=== PATIENT | female | born 1980 | race Caucasian/White ===

== ENCOUNTER 2017-03-29 01:46 | Inpatient (IN) | payer MEDICARE, MEDICAID ==
[~2017-03-29] VITALS: Ht 17.8 cm; Wt 79.9 kg
[2017-03-29] VITALS (9 sets, daily range): BP systolic 86–124; BP diastolic 50–86; PULSE 51–96; TEMP 98–99.5
[~2017-03-29 01:46] MED LIST: ABILIFY 10MG TA10 MG PO; ABILIFY2 MG PO; AMBIEN 5MG TABLE5 MG PO; CALCIUM/VITAMIN1 CAP PO; CALTRATE-600 W600 MG PO; CEFTIN500 MG PO; CELEBREX 200MG200 MG PO; CELEXA 20MG20 MG/TAB PO; CEPHALEXIN500 M1 PO; COLACE 100100 MG/CAP PO; CYMBALTA 30MG30 MG PO; DIFLUCAN200 MG PO; DILAUDID 2MG TAB2 MG PO; DILAUDID 4MG TAB4 MG PO; GENTLE LAXATIVE10 MG RC; K-TAB20; KEPPRA 500MG500 MG PO; KLONOPIN 1MG1 MG PO; KLOR-CON 1010 MEQ PO; LEVAQUIN 5500 MG/TA1 PO; LOPRESSOR 225 MG/TAB PO; METROGEL GEL45 GM; MILK OF MA400 MG/52 PO; MS CONTIN 660 MG/TAB PO; MULTIPLE VITAMI1 CAP PO; NEURONTIN100 MG/CAP PO; NEURONTIN300 MG/CAP PO; NICODERM C14 MG/PATC TOP; NYSTATIN POWDER15 GM TOP; NYSTATIN1 POW; PEPCID40 MG PO; PERCR 7.5 PO; PHENERGAN25 MG/ML IM; PLAVIX 75MG TAB75 MG PO; PREDNISONE10 MG PO; PREDNISONE20 MG PO; PRIL40 PO; PROSOURCE PROT946 ML PO; TOPROL XL 50MG50 MG PO; TYLENOL 325MG325 MG PO; TYLENOL 500MG500 MG PO; UNABLE; VITAMIN C500 MG PO; VITAMIN D 50,1.25 MG PO; ZOFRAN ODT4 MG PO; natural tears
[2017-03-29] MEDS ORDERED: ABILIFY5 MG PO (01:58)
[2017-03-29] MEDS ORDERED: NEURONTIN600 MG/TAB PO (01:59)
[2017-03-29] MEDS ORDERED: MIRALAX PA17 GM/Dose PO (02:00)
[2017-03-29] MEDS ORDERED: PHENERGAN25 MG/ML IM (02:01)
[2017-03-29] MEDS ORDERED: COLACE 100100 MG/CAP PO (02:01)
[2017-03-29] MEDS ORDERED: DILAUDID 4MG TAB4 MG PO (02:02)
[2017-03-29] MEDS ORDERED: TYLENOL 325MG325 MG PO (02:06)
[2017-03-29] MEDS ORDERED: PEPCID40 MG PO (02:06)
[2017-03-29 02:11] LABS: BASO # 0.1 (0.0-0.2); BASO % 0.3 % (0.0-2.0); GRAN # 12.6 (1.4-6.5); HEMATOCRIT 44.5 % (37.0-47.0); HEMOGLOBIN 14.5 g/dl (12.5-16.0); LYMPH # 1.2 (1.2-3.4); LYMPH % 8.2 % (20.0-51.0); MEAN CELL VOLUME 85 fl (80.0-100.0); MEAN CORPUSCULAR HEMOGLOBIN 28 pg (27.0-31.0); MEAN CORPUSCULAR HGB CONC 33 g/dl (33.0-37.0); MEAN PLATELET VOLUME 9.3 fl (7.4-10.4); MONO # 1.1 (0.1-0.6); MONO % 7.2 % (1.7-9.3); PLATELET COUNT 210 K/mm3 (130-400); RED BLOOD COUNT 5.22 M/mm3 (4.10-5.30); REDCELL DISTRIBUTION WIDTH-CV 13.4 % (11.5-14.5); WHITE BLOOD COUNT 15.1 K/mm3 (4.8-10.8)
[2017-03-29 02:22] LABS: ADJUSTED CALCIUM 9.3 mg/dL (8.4-10.2); ALBUMIN 3.9 gm/dL (3.5-5.0); BILIRUBIN,TOTAL 0.7 mg/dL (0.0-1.0); C-REACTIVE PROTEIN 1.1 mg/dL (0.0-0.9); CALCIUM 9.2 mg/dL (8.4-10.2); CREATININE, serum 0.53 mg/dL (0.52-1.25); POTASSIUM 4.6 mmol/L (3.4-5.0); TOTAL PROTEIN 7.6 gm/dL (6.4-8.2)
[2017-03-29 02:30] LABS: PH 5 (5-8); URINE APPEARANCE Hazy; URINE BACTERIA Rare /hpf; URINE BILIRUBIN Negative (NEGATIVE); URINE BLOOD 2+ (NEGATIVE); URINE COLOR Yellow; URINE GLUCOSE Negative (NEGATIVE); URINE KETONE Negative (NEGATIVE); URINE RBC >50 /hpf; URINE UROBILINOGEN Negative (NEGATIVE); URINE WBC 20-50 /hpf
[2017-03-30 02:26] VITALS: BP 97/61; PULSE 56; TEMP 98.1
[2017-03-30 04:21] VITALS: BP 107/58; PULSE 59; TEMP 98.2
[2017-03-30 07:07] LABS: BASO % 0.4 % (0.0-2.0); GRAN # 5.6 (1.4-6.5); LYMPH # 1.4 (1.2-3.4); LYMPH % 18.7 % (20.0-51.0); MEAN CELL VOLUME 88 fl (80.0-100.0); MEAN CORPUSCULAR HGB CONC 31 g/dl (33.0-37.0); MEAN PLATELET VOLUME 9.9 fl (7.4-10.4); MONO # 0.6 (0.1-0.6); MONO % 7.5 % (1.7-9.3); PLATELET COUNT 146 K/mm3 (130-400); RED BLOOD COUNT 3.54 M/mm3 (4.10-5.30); REDCELL DISTRIBUTION WIDTH-CV 13.5 % (11.5-14.5); WHITE BLOOD COUNT 7.7 K/mm3 (4.8-10.8)
[2017-03-30 07:21] LABS: CREATININE, serum 0.4 mg/dL (0.52-1.25); POTASSIUM 3.8 mmol/L (3.4-5.0)
[2017-03-30 07:33] LABS: HEMATOCRIT 31.2 % (37.0-47.0); HEMOGLOBIN 9.7 g/dl (12.5-16.0); MEAN CORPUSCULAR HEMOGLOBIN 27 pg (27.0-31.0)
[2017-03-30 09:21] VITALS: BP 88/46; PULSE 67; TEMP 98.3
[2017-03-30 13:29] VITALS: BP 95/50; PULSE 87; TEMP 98.1
[2017-03-30 17:01] VITALS: BP 114/72; PULSE 75; TEMP 98.4
[2017-03-30 22:26] VITALS: BP 111/70; PULSE 71; TEMP 96.8
[2017-03-31 01:34] VITALS: BP 113/72; PULSE 67; TEMP 97.7
[2017-03-31 04:00] VITALS: BP 114/70; PULSE 79; TEMP 97.9
[2017-03-31 07:51] LABS: BASO % 0.4 % (0.0-2.0); EOS % 0.4 % (0-4.0); GRAN # 3.2 (1.4-6.5); GRAN % 58.8 % (42.2-75.2); LYMPH # 1.8 (1.2-3.4); LYMPH % 32.5 % (20.0-51.0); MEAN CELL VOLUME 89 fl (80.0-100.0); MEAN CORPUSCULAR HGB CONC 31 g/dl (33.0-37.0); MEAN PLATELET VOLUME 10.2 fl (7.4-10.4); MONO # 0.4 (0.1-0.6); MONO % 7.5 % (1.7-9.3); PLATELET COUNT 144 K/mm3 (130-400); RED BLOOD COUNT 3.64 M/mm3 (4.10-5.30); REDCELL DISTRIBUTION WIDTH-CV 13.7 % (11.5-14.5); WHITE BLOOD COUNT 5.5 K/mm3 (4.8-10.8)
[2017-03-31 07:59] LABS: HEMATOCRIT 32.4 % (37.0-47.0); MEAN CORPUSCULAR HEMOGLOBIN 27 pg (27.0-31.0)
[2017-03-31 08:06] LABS: ADJUSTED CALCIUM 9.5 mg/dL (8.4-10.2); ALBUMIN 2.4 gm/dL (3.5-5.0); BILIRUBIN,TOTAL 0.4 mg/dL (0.0-1.0); CALCIUM 8.2 mg/dL (8.4-10.2); CREATININE, serum 0.45 mg/dL (0.52-1.25); POTASSIUM 3.5 mmol/L (3.4-5.0); TOTAL PROTEIN 5.2 gm/dL (6.4-8.2)
[2017-03-31 09:07] VITALS: BP 114/70; PULSE 79; TEMP 97.9
[2017-03-31 09:12] VITALS: BP 114/70; PULSE 79; TEMP 97.9
[2017-03-31 09:16] VITALS: BP 114/70; PULSE 79; TEMP 97.9
[2017-03-31 10:22] VITALS: BP 107/70; PULSE 76; TEMP 98
== END 2017-03-31 14:28 | DRG 872 ==
LOC: COL.ER 01:46 → SURG 03:18
PROVIDERS: Nurse Practitioner Family; Physician Assistant; Urology
PROC: 0T768DZ Dilation of Right Ureter with Intraluminal Device, Via Natural or Artificial Opening Endoscopic (ICD-10-PCS; principal; 2017-03-29 12:30)
DX: A41.9 Sepsis, unspecified organism (principal); N13.6 Pyonephrosis; G82.20 Paraplegia, unspecified; N39.0 Urinary tract infection, site not specified; E87.2 Acidosis; Z66 Do not resuscitate; I69.321 Dysphasia following cerebral infarction; I69.361 Other paralytic syndrome following cerebral infarction affecting right dominant side; I10 Essential (primary) hypertension; M79.7 Fibromyalgia; G89.29 Other chronic pain; K90.0 Celiac disease
CPT/HCPCS: 99231-AI; 99233-AI; C1769; C2617; J0690; J0696; J1100; J1170; J1580; J1885; J2405; J2704; J3010; J7030; Q9967

== ENCOUNTER 2017-04-13 11:42 | Day surgery (SDC) | payer MEDICARE, MEDICAID ==
[~2017-04-13] VITALS: Ht 172.7 cm; Wt 73.3 kg
[~2017-04-13 11:42] MED LIST changes: +ABILIFY5 MG PO; +MIRALAX PA17 GM/Dose PO; +NEURONTIN600 MG/TAB PO
[2017-04-13 13:29] VITALS: BP 93/59; PULSE 66; TEMP 97.1
[2017-04-13] MEDS ORDERED: EYE DROP ORIGIN15 ML OP (14:14)
[2017-04-13] MEDS ORDERED: NATURAL TEARS OP (14:16)
[2017-04-13] MEDS ORDERED: NYSTATIN POWDER30 GM TOP (14:19)
[2017-04-13 16:16] VITALS: TEMP 98.3
[2017-04-13 16:20] VITALS: BP 111/56; PULSE 72
[2017-04-13 16:35] VITALS: BP 101/59; PULSE 69
[2017-04-13 16:50] VITALS: BP 102/64; PULSE 79
[2017-04-13 17:05] VITALS: BP 103/69; PULSE 71
== END 2017-04-13 17:20 ==
LOC: SDCO 11:42
DX: N20.0 Calculus of kidney (principal); Z87.442 Personal history of urinary calculi; Z87.440 Personal history of urinary (tract) infections; I10 Essential (primary) hypertension; R56.9 Unspecified convulsions; I69.859 Hemiplegia and hemiparesis following other cerebrovascular disease affecting unspecified side; I69.828 Other speech and language deficits following other cerebrovascular disease; Z79.02 Long term (current) use of antithrombotics/antiplatelets; Z79.899 Other long term (current) drug therapy
CPT/HCPCS: C1769; C1894; C2617; J0690; J1100; J2370; J2405; J2704; J3010; J7120

== ENCOUNTER 2017-05-11 11:04 | Day surgery (SDC) | payer MEDICARE, MEDICAID ==
[~2017-05-11] VITALS: Ht 172.7 cm; Wt 79.6 kg
[~2017-05-11 11:04] MED LIST changes: +EYE DROP ORIGIN15 ML OP; +NATURAL TEARS OP; +NYSTATIN POWDER30 GM TOP
[2017-05-11 13:09] VITALS: BP 122/86; PULSE 99
[2017-05-11 16:45] VITALS: BP 114/64; PULSE 93
[2017-05-11 17:00] VITALS: BP 113/67; PULSE 90; TEMP 98.3
[2017-05-11 17:15] VITALS: BP 130/84; PULSE 88
== END 2017-05-11 17:25 ==
LOC: SDCO 11:04
DX: N20.0 Calculus of kidney (principal); Z87.442 Personal history of urinary calculi; I69.328 Other speech and language deficits following cerebral infarction; I69.369 Other paralytic syndrome following cerebral infarction affecting unspecified side; G82.20 Paraplegia, unspecified; I10 Essential (primary) hypertension; M62.81 Muscle weakness (generalized); Z87.440 Personal history of urinary (tract) infections; R56.9 Unspecified convulsions; Z79.01 Long term (current) use of anticoagulants; I73.9 Peripheral vascular disease, unspecified; K90.0 Celiac disease; F32.9 Major depressive disorder, single episode, unspecified; M79.7 Fibromyalgia; L89.90 Pressure ulcer of unspecified site, unspecified stage; Z86.14 Personal history of Methicillin resistant Staphylococcus aureus infection; Z87.891 Personal history of nicotine dependence
CPT/HCPCS: C1769; C1894; C2617; J0690; J1100; J2270; J2405; J2704; J3010; J7120

== ENCOUNTER 2017-05-12 13:20 | Inpatient (IN) | payer MEDICARE, MEDICAID ==
[2017-05-12] VITALS (391 sets, daily range): BP systolic 84–102; BP diastolic 60–68; PULSE 95–105; TEMP 97.2–99.4; O2SAT 78–100
[~2017-05-12] VITALS: Ht 172.7 cm; Wt 87.8 kg
[2017-05-12 13:59] LABS: BASO % 0.5 % (0.0-2.0); EOS % 0.2 % (0-4.0); GRAN # 4.8 (1.4-6.5); GRAN % 80.4 % (42.2-75.2); LYMPH # 0.8 (1.2-3.4); LYMPH % 13.7 % (20.0-51.0); MEAN CELL VOLUME 86 fl (80.0-100.0); MEAN CORPUSCULAR HGB CONC 32 g/dl (33.0-37.0); MEAN PLATELET VOLUME 9.8 fl (7.4-10.4); MONO # 0.3 (0.1-0.6); MONO % 4.9 % (1.7-9.3); PLATELET COUNT 148 K/mm3 (130-400); RED BLOOD COUNT 4.27 M/mm3 (4.10-5.30); REDCELL DISTRIBUTION WIDTH-CV 13.2 % (11.5-14.5); WHITE BLOOD COUNT 5.9 K/mm3 (4.8-10.8)
[2017-05-12 14:01] LABS: HEMATOCRIT 36.6 % (37.0-47.0); HEMOGLOBIN 11.6 g/dl (12.5-16.0); MEAN CORPUSCULAR HEMOGLOBIN 27 pg (27.0-31.0)
[2017-05-12 14:10] LABS: ADJUSTED CALCIUM 8.5 mg/dL (8.4-10.2); ALANINE AMINOTRANSFERASE 25 U/L (9-52); ALBUMIN 3.6 gm/dL (3.5-5.0); ALKALINE PHOSPHATASE 91 U/L (50-136); ANION GAP 12 mmol/L (7-16); BILIRUBIN,TOTAL 0.6 mg/dL (0.0-1.0); BLOOD UREA NITROGEN 11 mg/dL (7-17); CALCIUM 8.2 mg/dL (8.4-10.2); CARBON DIOXIDE 25 mmol/L (22-30); CHLORIDE 101 mmol/L (98-107); CREATININE, serum 0.59 mg/dL (0.52-1.25); GLUCOSE 85 mg/dL (74-106); POTASSIUM 3.9 mmol/L (3.4-5.0); SODIUM 138 mmol/L (137-145); TOTAL PROTEIN 6.8 gm/dL (6.4-8.2)
[2017-05-12 15:11] LABS: PH 7 (5-8); SQUAMOUS EPITHELIAL None Seen /hpf; URINE APPEARANCE Clear; URINE BACTERIA None Seen /hpf; URINE BILIRUBIN Negative (NEGATIVE); URINE BLOOD 3+ (NEGATIVE); URINE COLOR Red; URINE GLUCOSE 1+ (NEGATIVE); URINE KETONE Trace (NEGATIVE); URINE RBC >50 /hpf; URINE UROBILINOGEN Negative (NEGATIVE); URINE WBC None Seen /hpf
[2017-05-12 18:25] LABS: ARTERIAL BLD GAS TCO2 CT 21.5; ARTERIAL BLOOD GAS BASE EXCESS -4.2 (-2-2); ARTERIAL BLOOD GAS HCO3 20.4 meq/L (22-26); ARTERIAL BLOOD GAS PHT 7.38 C (7.35-7.45); ARTERIAL BLOOD GAS PO2 67.6 mmHg (80-100); ARTERIAL BLOOD GAS PO2T 67.6 (80-100); ARTERIAL BLOOD GAS pH 7.38 (7.35-7.45); OXYHEMOGLOBIN 91.4 %
[2017-05-12 18:26] LABS: ATS? YES
[2017-05-12 18:30] LABS: B-TYPE NATRIURETIC PEPTIDE 288 pg/mL (0-125)
[2017-05-12 19:10] LABS: INR 1.3 (0.8-3.0); PROTHROMBIN TIME 14.7 SECONDS (9.7-12.8)
[2017-05-12 19:34] LABS: TROPONIN-I < 0.012 ng/mL (0.000-0.034)
[2017-05-12 21:32] LABS: VENOUS BLOOD GAS BE -5.4 (-4-4); VENOUS BLOOD GAS SAO2 76.3 % (60-80)
[2017-05-12 21:33] LABS: VENOUS BLOOD GAS SITE CENTRAL LINE
[2017-05-13] VITALS (761 sets, daily range): BP systolic 89–136; BP diastolic 52–97; PULSE 66–100; TEMP 97.2–99.3; O2SAT 83–100
[2017-05-13 01:43] LABS: VENOUS BLOOD GAS BE -3.4 (-4-4); VENOUS BLOOD GAS SAO2 69.3 % (60-80)
[2017-05-13 01:45] LABS: VENOUS BLOOD GAS SITE CENTRAL LINE
[2017-05-13 04:54] LABS: INR 1.4 (0.8-3.0)
[2017-05-13 04:57] LABS: ADJUSTED CALCIUM 8.6 mg/dL (8.4-10.2); ALBUMIN 2.8 gm/dL (3.5-5.0); BILIRUBIN,TOTAL 0.5 mg/dL (0.0-1.0); CALCIUM 7.6 mg/dL (8.4-10.2); CREATININE, serum 0.47 mg/dL (0.52-1.25); PARTIAL THROMBOPLASTIN TIME 36.5 SECONDS (26.0-37.0); POTASSIUM 3.3 mmol/L (3.4-5.0); TOTAL PROTEIN 5.8 gm/dL (6.4-8.2)
[2017-05-13 05:38] LABS: VENOUS BLOOD GAS BE -3.1 (-4-4); VENOUS BLOOD GAS SAO2 75.1 % (60-80)
[2017-05-13 05:39] LABS: VENOUS BLOOD GAS SITE CENTRAL LINE
[2017-05-13 07:45] LABS: BASO % 0.2 % (0.0-2.0); GRAN # 3.5 (1.4-6.5); GRAN % 77.7 % (42.2-75.2); LYMPH # 0.7 (1.2-3.4); MEAN CELL VOLUME 86 fl (80.0-100.0); MEAN CORPUSCULAR HGB CONC 32 g/dl (33.0-37.0); MEAN PLATELET VOLUME 9.8 fl (7.4-10.4); MONO # 0.3 (0.1-0.6); MONO % 6.7 % (1.7-9.3); PLATELET COUNT 128 K/mm3 (130-400); REDCELL DISTRIBUTION WIDTH-CV 13.2 % (11.5-14.5); WHITE BLOOD COUNT 4.5 K/mm3 (4.8-10.8)
[2017-05-13 07:51] LABS: HEMATOCRIT 26.7 % (37.0-47.0); MEAN CORPUSCULAR HEMOGLOBIN 27 pg (27.0-31.0)
[2017-05-13 07:53] LABS: HEMOGLOBIN 8.5 g/dl (12.5-16.0)
[2017-05-13 10:00] LABS: MAGNESIUM 1.8 mg/dL (1.6-2.3); PHOSPHOROUS 2.5 mg/dL (2.5-4.5)
[2017-05-13 10:16] LABS: VENOUS BLOOD GAS BE -3.5 (-4-4); VENOUS BLOOD GAS SAO2 66.3 % (60-80)
[2017-05-13 10:17] LABS: VENOUS BLOOD GAS SITE CENTRAL LINE
[2017-05-13 14:39] LABS: VENOUS BLOOD GAS BE -1.9 (-4-4); VENOUS BLOOD GAS SAO2 71.6 % (60-80)
[2017-05-13 14:40] LABS: VENOUS BLOOD GAS SITE CENTRAL LINE
[2017-05-13 19:35] LABS: VENOUS BLOOD GAS BE -4.3 (-4-4); VENOUS BLOOD GAS SAO2 70.8 % (60-80)
[2017-05-13 19:36] LABS: VENOUS BLOOD GAS SITE CENTRAL LINE
[2017-05-14] VITALS (1222 sets, daily range): BP systolic 90–141; BP diastolic 55–96; PULSE 60–109; TEMP 97–98.9; O2SAT 62–100
[2017-05-14 06:10] LABS: BASO % 0.2 % (0.0-2.0); GRAN # 3.4 (1.4-6.5); GRAN % 76.8 % (42.2-75.2); LYMPH # 0.7 (1.2-3.4); LYMPH % 15.8 % (20.0-51.0); MEAN CELL VOLUME 85 fl (80.0-100.0); MEAN CORPUSCULAR HGB CONC 33 g/dl (33.0-37.0); MEAN PLATELET VOLUME 10.2 fl (7.4-10.4); MONO # 0.3 (0.1-0.6); MONO % 6.7 % (1.7-9.3); PLATELET COUNT 128 K/mm3 (130-400); RED BLOOD COUNT 3.26 M/mm3 (4.10-5.30); WHITE BLOOD COUNT 4.4 K/mm3 (4.8-10.8)
[2017-05-14 06:13] LABS: HEMATOCRIT 27.6 % (37.0-47.0); HEMOGLOBIN 9.1 g/dl (12.5-16.0); MEAN CORPUSCULAR HEMOGLOBIN 28 pg (27.0-31.0)
[2017-05-14 06:14] LABS: INR 1.3 (0.8-3.0); PROTHROMBIN TIME 14.3 SECONDS (9.7-12.8)
[2017-05-14 06:17] LABS: PARTIAL THROMBOPLASTIN TIME 31.3 SECONDS (26.0-37.0)
[2017-05-14 06:43] LABS: ADJUSTED CALCIUM 8.7 mg/dL (8.4-10.2); ALBUMIN 2.7 gm/dL (3.5-5.0); BILIRUBIN,TOTAL 0.4 mg/dL (0.0-1.0); CALCIUM 7.7 mg/dL (8.4-10.2); CREATININE, serum 0.36 mg/dL (0.52-1.25); TOTAL PROTEIN 5.4 gm/dL (6.4-8.2)
[2017-05-14 06:48] LABS: POTASSIUM 2.4 mmol/L (3.4-5.0)
[2017-05-14 12:00] LABS: MAGNESIUM 1.5 mg/dL (1.6-2.3); PHOSPHOROUS 1.6 mg/dL (2.5-4.5)
[2017-05-14 12:23] LABS: POTASSIUM 2.4 mmol/L (3.4-5.0)
[2017-05-14 20:06] LABS: MAGNESIUM 1.6 mg/dL (1.6-2.3); POTASSIUM 3.4 mmol/L (3.4-5.0)
[2017-05-15] VITALS (553 sets, daily range): BP systolic 89–121; BP diastolic 54–75; PULSE 46–82; TEMP 97.1–98.1; O2SAT 87–100
[2017-05-15 05:37] LABS: BASO % 0.4 % (0.0-2.0); EOS % 0.4 % (0-4.0); GRAN # 1.7 (1.4-6.5); GRAN % 60.5 % (42.2-75.2); LYMPH # 0.9 (1.2-3.4); LYMPH % 31.5 % (20.0-51.0); MEAN CELL VOLUME 85 fl (80.0-100.0); MEAN CORPUSCULAR HGB CONC 32 g/dl (33.0-37.0); MEAN PLATELET VOLUME 9.7 fl (7.4-10.4); MONO # 0.2 (0.1-0.6); MONO % 6.8 % (1.7-9.3); PLATELET COUNT 104 K/mm3 (130-400); RED BLOOD COUNT 3.02 M/mm3 (4.10-5.30); REDCELL DISTRIBUTION WIDTH-CV 13.2 % (11.5-14.5); WHITE BLOOD COUNT 2.8 K/mm3 (4.8-10.8)
[2017-05-15 05:42] LABS: HEMATOCRIT 25.6 % (37.0-47.0); HEMOGLOBIN 8.2 g/dl (12.5-16.0); MEAN CORPUSCULAR HEMOGLOBIN 27 pg (27.0-31.0)
[2017-05-15 05:47] LABS: ADJUSTED CALCIUM 8.8 mg/dL (8.4-10.2); ALBUMIN 2.5 gm/dL (3.5-5.0); BILIRUBIN,TOTAL 0.3 mg/dL (0.0-1.0); CALCIUM 7.6 mg/dL (8.4-10.2); CREATININE, serum 0.36 mg/dL (0.52-1.25); INR 1.2 (0.8-3.0); MAGNESIUM 2.2 mg/dL (1.6-2.3); PHOSPHOROUS 2.5 mg/dL (2.5-4.5); POTASSIUM 3.5 mmol/L (3.4-5.0); PROTHROMBIN TIME 12.8 SECONDS (9.7-12.8)
[2017-05-16 01:15] VITALS: BP 98/64; PULSE 57; TEMP 97.4
[2017-05-16 05:00] VITALS: BP 99/64; PULSE 72; TEMP 97.4
[2017-05-16 07:56] LABS: BASO % 0.3 % (0.0-2.0); EOS % 0.3 % (0-4.0); GRAN # 1.7 (1.4-6.5); GRAN % 56.7 % (42.2-75.2); LYMPH # 1.1 (1.2-3.4); LYMPH % 36.5 % (20.0-51.0); MEAN CELL VOLUME 88 fl (80.0-100.0); MEAN CORPUSCULAR HGB CONC 30 g/dl (33.0-37.0); MEAN PLATELET VOLUME 9.9 fl (7.4-10.4); MONO # 0.2 (0.1-0.6); MONO % 5.9 % (1.7-9.3); PLATELET COUNT 138 K/mm3 (130-400); RED BLOOD COUNT 3.14 M/mm3 (4.10-5.30); REDCELL DISTRIBUTION WIDTH-CV 13.6 % (11.5-14.5); WHITE BLOOD COUNT 3.1 K/mm3 (4.8-10.8)
[2017-05-16 07:59] LABS: HEMATOCRIT 27.5 % (37.0-47.0); HEMOGLOBIN 8.3 g/dl (12.5-16.0); MEAN CORPUSCULAR HEMOGLOBIN 26 pg (27.0-31.0)
[2017-05-16 08:15] LABS: CALCIUM 7.7 mg/dL (8.4-10.2); CREATININE, serum 0.37 mg/dL (0.52-1.25); MAGNESIUM 1.9 mg/dL (1.6-2.3); PHOSPHOROUS 2.3 mg/dL (2.5-4.5); POTASSIUM 3.6 mmol/L (3.4-5.0)
[2017-05-16 08:29] VITALS: BP 113/73; PULSE 51; TEMP 98.3
[2017-05-16 11:07] VITALS: BP 127/79; PULSE 75; TEMP 98
[2017-05-16 16:26] VITALS: BP 127/82; PULSE 67; TEMP 97.3
[2017-05-16 21:50] VITALS: BP 128/85; PULSE 78; TEMP 97.8
[2017-05-17] VITALS (7 sets, daily range): BP systolic 76–120; BP diastolic 44–96; PULSE 52–82; TEMP 96.7–98.2
[2017-05-17 07:54] LABS: BASO % 0.3 % (0.0-2.0); GRAN # 1.8 (1.4-6.5); GRAN % 58.9 % (42.2-75.2); LYMPH # 1.1 (1.2-3.4); LYMPH % 35.5 % (20.0-51.0); MEAN CELL VOLUME 88 fl (80.0-100.0); MEAN CORPUSCULAR HGB CONC 31 g/dl (33.0-37.0); MEAN PLATELET VOLUME 9.8 fl (7.4-10.4); MONO # 0.2 (0.1-0.6); PLATELET COUNT 152 K/mm3 (130-400); RED BLOOD COUNT 3.28 M/mm3 (4.10-5.30); REDCELL DISTRIBUTION WIDTH-CV 13.6 % (11.5-14.5)
[2017-05-17 07:59] LABS: HEMATOCRIT 28.7 % (37.0-47.0); HEMOGLOBIN 8.9 g/dl (12.5-16.0); MEAN CORPUSCULAR HEMOGLOBIN 27 pg (27.0-31.0)
[2017-05-17 08:16] LABS: CALCIUM 7.8 mg/dL (8.4-10.2); CREATININE, serum 0.36 mg/dL (0.52-1.25)
[2017-05-17 08:42] LABS: MAGNESIUM 1.8 mg/dL (1.6-2.3); PHOSPHOROUS 3.1 mg/dL (2.5-4.5)
[2017-05-18 00:35] VITALS: BP 105/64; PULSE 65; TEMP 98
[2017-05-18 06:21] LABS: BASO % 0.6 % (0.0-2.0); EOS % 0.2 % (0-4.0); GRAN # 3.5 (1.4-6.5); GRAN % 69.2 % (42.2-75.2); LYMPH # 1.2 (1.2-3.4); LYMPH % 23.2 % (20.0-51.0); MEAN CELL VOLUME 88 fl (80.0-100.0); MEAN CORPUSCULAR HGB CONC 31 g/dl (33.0-37.0); MEAN PLATELET VOLUME 9.7 fl (7.4-10.4); MONO # 0.3 (0.1-0.6); MONO % 6.2 % (1.7-9.3); PLATELET COUNT 166 K/mm3 (130-400); RED BLOOD COUNT 3.36 M/mm3 (4.10-5.30); REDCELL DISTRIBUTION WIDTH-CV 13.9 % (11.5-14.5)
[2017-05-18 06:24] LABS: HEMATOCRIT 29.5 % (37.0-47.0); HEMOGLOBIN 9.1 g/dl (12.5-16.0); MEAN CORPUSCULAR HEMOGLOBIN 27 pg (27.0-31.0)
[2017-05-18 06:35] LABS: CALCIUM 7.6 mg/dL (8.4-10.2); CREATININE, serum 0.38 mg/dL (0.52-1.25); POTASSIUM 3.8 mmol/L (3.4-5.0)
[2017-05-18 07:28] VITALS: BP 93/66; PULSE 53; TEMP 98
[2017-05-18] MEDS ORDERED: IMODIUM A-D2 MG PO (11:39)
[2017-05-18] MEDS ORDERED: FERROUS SU325 MG/TAB PO (11:39)
[2017-05-18 11:47] VITALS: BP 103/62; PULSE 63; TEMP 98.4
[2017-05-18] MEDS ORDERED: CIPRO 500MG TA500 MG PO (11:50)
[2017-05-18] MEDS ORDERED: KLONOPIN 1MG1 MG PO (12:00)
[2017-05-18] MEDS ORDERED: DILAUDID 4MG TAB4 MG PO (12:00)
[2017-05-18 12:34] VITALS: BP 103/62; PULSE 63; TEMP 98.4
== END 2017-05-18 16:21 | DRG 853 ==
LOC: COL.ER 13:20 → IMCU 15:36 → ICU 15:36 → MEDICAL 05-15 16:30
PROVIDERS: Emergency Medicine; Family Medicine; Internal Medicine Pulmonary Disease
PROC: 0TC68ZZ Extirpation of Matter from Right Ureter, Via Natural or Artificial Opening Endoscopic (ICD-10-PCS; principal; 2017-05-11)
PROC: 0TP98DZ Removal of Intraluminal Device from Ureter, Via Natural or Artificial Opening Endoscopic (ICD-10-PCS; 2017-05-11)
PROC: 0T768DZ Dilation of Right Ureter with Intraluminal Device, Via Natural or Artificial Opening Endoscopic (ICD-10-PCS; 2017-05-11)
PROC: 02H633Z Insertion of Infusion Device into Right Atrium, Percutaneous Approach (ICD-10-PCS; 2017-05-13)
DX: A41.9 Sepsis, unspecified organism (principal); R65.21 Severe sepsis with septic shock; N10 Acute pyelonephritis; G82.20 Paraplegia, unspecified; K52.1 Toxic gastroenteritis and colitis; D61.818 Other pancytopenia; N20.0 Calculus of kidney; M79.7 Fibromyalgia; Z66 Do not resuscitate; I10 Essential (primary) hypertension; I69.320 Aphasia following cerebral infarction; E87.6 Hypokalemia; D64.9 Anemia, unspecified; L27.0 Generalized skin eruption due to drugs and medicaments taken internally; T36.8X5A Adverse effect of other systemic antibiotics, initial encounter
CPT/HCPCS: 99223-AI; 99232-AI; 99233-AI; 99239; A4315; C1751; C1769; C1894; C2617; C9113; J0690; J0696; J1100; J1450; J1644; J1650; J1720; J1956; J2060; J2185; J2270; J2405; J2543; J2704; J3010; J3370; J3475; J3480; J7030; J7050; J7120; P9047; Q9967

== ENCOUNTER → 2017-05-21 | Outpatient (REF) ==
[~2017-05-21] MED LIST changes: +CIPRO 500MG TA500 MG PO; +FERROUS SU325 MG/TAB PO; +IMODIUM A-D2 MG PO
[2017-05-21 09:18] LABS: MEAN CELL VOLUME 86 fl (80.0-100.0); MEAN CORPUSCULAR HGB CONC 32 g/dl (33.0-37.0); MEAN PLATELET VOLUME 9.6 fl (7.4-10.4); PLATELET COUNT 193 K/mm3 (130-400)
[2017-05-21 09:54] LABS: HEMATOCRIT 32.5 % (37.0-47.0); HEMOGLOBIN 10.4 g/dl (12.5-16.0); MEAN CORPUSCULAR HEMOGLOBIN 27 pg (27.0-31.0)
== END ==
LOC: ZLAB.STJ 09:12
PROVIDERS: Internal Medicine
DX: Z01.89 Encounter for other specified special examinations (principal)

== ENCOUNTER → 2017-06-17 | Outpatient (CLI) | payer MEDICARE, MEDICAID | LOC: COL.RAD 09:00 | DX: N20.0 Calculus of kidney (principal); Z96.0 Presence of urogenital implants ==

== ENCOUNTER → 2017-08-11 | Outpatient (CLI) | payer MEDICARE, MEDICAID ==
[2017-08-11 11:00] LABS: BASO % 0.4 % (0.0-2.0); EOS % 0.5 % (0-4.0); GRAN # 4.5 (1.4-6.5); GRAN % 62.5 % (42.2-75.2); HEMATOCRIT 42.2 % (37.0-47.0); HEMOGLOBIN 13.5 g/dl (12.5-16.0); LYMPH # 2.2 (1.2-3.4); LYMPH % 30.6 % (20.0-51.0); MEAN CELL VOLUME 88 fl (80.0-100.0); MEAN CORPUSCULAR HEMOGLOBIN 28 pg (27.0-31.0); MEAN CORPUSCULAR HGB CONC 32 g/dl (33.0-37.0); MEAN PLATELET VOLUME 10.1 fl (7.4-10.4); MONO # 0.4 (0.1-0.6); MONO % 5.6 % (1.7-9.3); PLATELET COUNT 171 K/mm3 (130-400); RED BLOOD COUNT 4.78 M/mm3 (4.10-5.30); REDCELL DISTRIBUTION WIDTH-CV 14.6 % (11.5-14.5); WHITE BLOOD COUNT 7.3 K/mm3 (4.8-10.8)
[2017-08-11 11:24] LABS: ALBUMIN 3.7 gm/dL (3.5-5.0); BILIRUBIN,TOTAL 0.5 mg/dL (0.0-1.0); C-REACTIVE PROTEIN 1.1 mg/dL (0.0-0.9); CALCIUM 8.8 mg/dL (8.4-10.2); CREATININE, serum 0.4 mg/dL (0.52-1.25); POTASSIUM 3.9 mmol/L (3.4-5.0); TOTAL PROTEIN 6.8 gm/dL (6.4-8.2)
[2017-08-11 11:26] LABS: ERYTHROCYTE SEDIMENTATION RATE 10 mm/hr (0-20)
[2017-08-11 11:49] LABS: THYROID STIMULATING HORMONE 2.73 uIU/mL (0.465-4.680)
== END ==
LOC: ZLAB.STJ 10:49
PROVIDERS: Internal Medicine
DX: I77.6 Arteritis, unspecified (principal)

== ENCOUNTER → 2017-08-31 | Outpatient (CLI) | payer MEDICARE, MEDICAID | LOC: COL.RAD 08:56 | DX: R13.12 Dysphagia, oropharyngeal phase (principal) | CPT/HCPCS: G8996-GN; G8997-GN; G8998-GN ==

== ENCOUNTER → 2017-10-07 | Outpatient (CLI) | payer MEDICARE, MEDICAID | LOC: MC.RAD 11:00 | DX: N64.89 Other specified disorders of breast (principal); N64.4 Mastodynia ==

== ENCOUNTER → 2017-10-12 | Outpatient (CLI) | payer MEDICARE, MEDICAID ==
[2017-10-12 10:12] LABS: BASO % 0.7 % (0.0-2.0); EOS % 0.7 % (0-4.0); GRAN % 53.2 % (42.2-75.2); HEMATOCRIT 40.1 % (37.0-47.0); LYMPH # 2.2 (1.2-3.4); LYMPH % 39.1 % (20.0-51.0); MEAN CELL VOLUME 91 fl (80.0-100.0); MEAN CORPUSCULAR HEMOGLOBIN 29 pg (27.0-31.0); MEAN CORPUSCULAR HGB CONC 32 g/dl (33.0-37.0); MEAN PLATELET VOLUME 10.7 fl (7.4-10.4); MONO # 0.3 (0.1-0.6); MONO % 6.1 % (1.7-9.3); PLATELET COUNT 135 K/mm3 (130-400); RED BLOOD COUNT 4.43 M/mm3 (4.10-5.30); WHITE BLOOD COUNT 5.6 K/mm3 (4.8-10.8)
[2017-10-12 10:42] LABS: ADJUSTED CALCIUM 9.1 mg/dL (8.4-10.2); ALBUMIN 3.3 gm/dL (3.5-5.0); BILIRUBIN,TOTAL 0.4 mg/dL (0.0-1.0); C-REACTIVE PROTEIN 1.3 mg/dL (0.0-0.9); CALCIUM 8.5 mg/dL (8.4-10.2); CREATININE, serum 0.52 mg/dL (0.52-1.25); POTASSIUM 4.3 mmol/L (3.4-5.0)
[2017-10-12 10:50] LABS: ERYTHROCYTE SEDIMENTATION RATE 16 mm/hr (0-20)
== END ==
LOC: ZLAB.STJ 09:49
PROVIDERS: Internal Medicine
DX: M60.9 Myositis, unspecified (principal); I10 Essential (primary) hypertension; D64.9 Anemia, unspecified; M79.7 Fibromyalgia

== ENCOUNTER 2017-12-12 22:41 | Inpatient (IN) | payer MEDICARE, MEDICAID ==
[~2017-12-12] VITALS: Ht 172.7 cm; Wt 88.5 kg
[2017-12-12 23:16] LABS: BASO # 0.1 (0.0-0.2); BASO % 0.8 % (0.0-2.0); EOS % 0.2 % (0-4.0); GRAN # 4.6 (1.4-6.5); GRAN % 76.9 % (42.2-75.2); HEMOGLOBIN 12.3 g/dl (12.5-16.0); LYMPH # 0.8 (1.2-3.4); LYMPH % 12.7 % (20.0-51.0); MEAN CELL VOLUME 86 fl (80.0-100.0); MEAN CORPUSCULAR HEMOGLOBIN 29 pg (27.0-31.0); MEAN CORPUSCULAR HGB CONC 34 g/dl (33.0-37.0); MEAN PLATELET VOLUME 11.1 fl (7.4-10.4); MONO # 0.5 (0.1-0.6); MONO % 9.1 % (1.7-9.3); PLATELET COUNT 70 K/mm3 (130-400); RED BLOOD COUNT 4.23 M/mm3 (4.10-5.30); REDCELL DISTRIBUTION WIDTH-CV 13.1 % (11.5-14.5)
[2017-12-12 23:17] LABS: HEMATOCRIT 36.2 % (37.0-47.0)
[2017-12-12 23:24] LABS: BILIRUBIN,TOTAL 0.3 mg/dL (0.0-1.0); CALCIUM 8.4 mg/dL (8.4-10.2); CREATININE, serum 0.69 mg/dL (0.52-1.25); POTASSIUM 3.2 mmol/L (3.4-5.0); TOTAL PROTEIN 6.3 gm/dL (6.4-8.2)
[2017-12-12 23:39] LABS: COLLECTION METHOD CLEAN CATCH
[2017-12-12 23:47] LABS: MUCOUS Present /lpf; PH 6 (5-8); SQUAMOUS EPITHELIAL 0-2 /hpf; URINE APPEARANCE Hazy; URINE BACTERIA Many /hpf; URINE BILIRUBIN Negative (NEGATIVE); URINE BLOOD 2+ (NEGATIVE); URINE COLOR Yellow; URINE GLUCOSE Negative (NEGATIVE); URINE KETONE Negative (NEGATIVE); URINE LEUKOCYTE ESTERASE 3+ (NEGATIVE); URINE NITRATE Positive (NEGATIVE); URINE PROTEIN(semi-quant) 2+ (NEGATIVE); URINE RBC 20-50 /hpf; URINE UROBILINOGEN Negative (NEGATIVE)
[2017-12-12 23:47] LABS: INFLUENZA A NEGATIVE; INFLUENZA B NEGATIVE
[2017-12-13] VITALS (8 sets, daily range): BP systolic 98–137; BP diastolic 55–76; PULSE 65–115; TEMP 97.5–102.5
[2017-12-13] MEDS ORDERED: VITAMIN D 50,1.25 MG PO (01:08)
[2017-12-13] MEDS ORDERED: ALMACONE 360 M360 ML PO (01:10)
[2017-12-13] MEDS ORDERED: DILAUDID 4MG TAB4 MG PO (01:13)
[2017-12-13] MEDS ORDERED: NORCO 325 MG-51 TAB PO (01:15)
[2017-12-13] MEDS ORDERED: TAMIFLU 75MG75 MG PO (01:29)
[2017-12-13] MEDS ORDERED: LEXAPRO 10MG10 MG PO (01:30)
[2017-12-13 03:59] LABS: MEAN CELL VOLUME 88 fl (80.0-100.0); MEAN CORPUSCULAR HGB CONC 33 g/dl (33.0-37.0); MEAN PLATELET VOLUME 11.2 fl (7.4-10.4); PLATELET COUNT 60 K/mm3 (130-400); RED BLOOD COUNT 3.48 M/mm3 (4.10-5.30); REDCELL DISTRIBUTION WIDTH-CV 13.2 % (11.5-14.5)
[2017-12-13 04:06] LABS: HEMATOCRIT 30.7 % (37.0-47.0); MEAN CORPUSCULAR HEMOGLOBIN 29 pg (27.0-31.0)
[2017-12-13 04:11] LABS: CREATININE, serum 0.73 mg/dL (0.52-1.25); MAGNESIUM 1.8 mg/dL (1.6-2.3); PHOSPHOROUS 2.4 mg/dL (2.5-4.5)
[2017-12-13 04:16] LABS: POTASSIUM 2.9 mmol/L (3.4-5.0)
[2017-12-13 04:22] LABS: BASOPHIL 1 % (0-2); EOSINOPHIL 1 % (0-4); LYMPHOCYTE 21 % (20.0-51.0); NEUTROPHILS 70 % (42.0-75.2); ROULEAUX 1+
[2017-12-13 04:23] LABS: ANISOCYTOSIS 1+; MICROCYTOSIS 1+; POIKILOCYTOSIS 1+
[2017-12-14] VITALS (7 sets, daily range): BP systolic 84–106; BP diastolic 53–73; PULSE 54–93; TEMP 96.5–100.6
[2017-12-14 01:27] LABS: BASO % 0.4 % (0.0-2.0); GRAN % 70.1 % (42.2-75.2); LYMPH # 0.5 (1.2-3.4); LYMPH % 18.2 % (20.0-51.0); MEAN CELL VOLUME 89 fl (80.0-100.0); MEAN CORPUSCULAR HGB CONC 32 g/dl (33.0-37.0); MEAN PLATELET VOLUME 10.4 fl (7.4-10.4); MONO # 0.3 (0.1-0.6); MONO % 10.2 % (1.7-9.3); PLATELET COUNT 64 K/mm3 (130-400); RED BLOOD COUNT 3.49 M/mm3 (4.10-5.30); REDCELL DISTRIBUTION WIDTH-CV 13.6 % (11.5-14.5)
[2017-12-14 01:32] LABS: HEMATOCRIT 31.2 % (37.0-47.0); HEMOGLOBIN 10.1 g/dl (12.5-16.0); MEAN CORPUSCULAR HEMOGLOBIN 29 pg (27.0-31.0)
[2017-12-14 01:55] LABS: CREATININE, serum 0.6 mg/dL (0.52-1.25); POTASSIUM 3.9 mmol/L (3.4-5.0)
[2017-12-14 01:56] LABS: CALCIUM 7.7 mg/dL (8.4-10.2)
[2017-12-15 01:37] VITALS: BP 95/51; PULSE 92; TEMP 98.3
[2017-12-15 05:21] VITALS: BP 90/66; PULSE 90; TEMP 98.9
[2017-12-15 06:49] LABS: MEAN CELL VOLUME 88 fl (80.0-100.0); MEAN CORPUSCULAR HGB CONC 33 g/dl (33.0-37.0); PLATELET COUNT 115 K/mm3 (130-400); REDCELL DISTRIBUTION WIDTH-CV 13.7 % (11.5-14.5)
[2017-12-15 07:12] LABS: ALANINE AMINOTRANSFERASE 27 U/L (9-52); ALBUMIN 2.4 gm/dL (3.5-5.0); ALKALINE PHOSPHATASE 56 U/L (50-136); ANION GAP 6 mmol/L (7-16); AST,SGOT 13 U/L (15-37); BILIRUBIN,TOTAL < 0.1 mg/dL (0.0-1.0); BLOOD UREA NITROGEN 10 mg/dL (7-17); CALCIUM 8.3 mg/dL (8.4-10.2); CARBON DIOXIDE 23 mmol/L (22-30); CHLORIDE 115 mmol/L (98-107); GLUCOSE 76 mg/dL (74-106); POTASSIUM 3.1 mmol/L (3.4-5.0); SODIUM 144 mmol/L (137-145); TOTAL PROTEIN 5.4 gm/dL (6.4-8.2)
[2017-12-15 07:14] LABS: HEMATOCRIT 32.5 % (37.0-47.0); HEMOGLOBIN 10.7 g/dl (12.5-16.0); MEAN CORPUSCULAR HEMOGLOBIN 29 pg (27.0-31.0)
[2017-12-15 11:42] LABS: BAND 30 % (0-10); BASOPHIL 1 % (0-2); LYMPHOCYTE 41 % (20.0-51.0); NEUTROPHILS 26 % (42.0-75.2); PLATELET ESTIMATE NORMAL (NORMAL)
[2017-12-15 14:18] VITALS: BP 99/69; PULSE 88; TEMP 98.4
[2017-12-15 18:23] VITALS: BP 87/52; PULSE 95; TEMP 98.6
[2017-12-16] VITALS (7 sets, daily range): BP systolic 95–157; BP diastolic 50–81; PULSE 70–99; TEMP 97.6–99.6
[2017-12-16 06:53] LABS: MEAN CELL VOLUME 88 fl (80.0-100.0); MEAN CORPUSCULAR HGB CONC 33 g/dl (33.0-37.0); MEAN PLATELET VOLUME 10.3 fl (7.4-10.4); PLATELET COUNT 160 K/mm3 (130-400); RED BLOOD COUNT 3.54 M/mm3 (4.10-5.30); REDCELL DISTRIBUTION WIDTH-CV 13.7 % (11.5-14.5)
[2017-12-16 07:02] LABS: CALCIUM 8.5 mg/dL (8.4-10.2); CREATININE, serum 0.48 mg/dL (0.52-1.25); MAGNESIUM 1.3 mg/dL (1.6-2.3)
[2017-12-16 07:07] LABS: HEMATOCRIT 31.2 % (37.0-47.0); HEMOGLOBIN 10.3 g/dl (12.5-16.0); MEAN CORPUSCULAR HEMOGLOBIN 29 pg (27.0-31.0)
[2017-12-16 10:51] LABS: BAND 4 % (0-10); EOSINOPHIL 2 % (0-4); LYMPHOCYTE 35 % (20.0-51.0); NEUTROPHILS 49 % (42.0-75.2)
[2017-12-16 10:52] LABS: HYPOCHROMIA 1+; PLATELET ESTIMATE NORMAL (NORMAL)
[2017-12-17 02:11] VITALS: BP 109/50; PULSE 86; TEMP 98.3
[2017-12-17 04:57] VITALS: BP 105/67; PULSE 71; TEMP 98.3
[2017-12-17 07:13] LABS: BASO % 0.6 % (0.0-2.0); EOS # 0.1 (0.0-0.7); GRAN % 56.9 % (42.2-75.2); LYMPH # 1.8 (1.2-3.4); LYMPH % 33.9 % (20.0-51.0); MEAN CELL VOLUME 89 fl (80.0-100.0); MEAN CORPUSCULAR HGB CONC 33 g/dl (33.0-37.0); MEAN PLATELET VOLUME 10.1 fl (7.4-10.4); MONO # 0.3 (0.1-0.6); MONO % 6.3 % (1.7-9.3); PLATELET COUNT 219 K/mm3 (130-400); RED BLOOD COUNT 3.51 M/mm3 (4.10-5.30); REDCELL DISTRIBUTION WIDTH-CV 13.7 % (11.5-14.5)
[2017-12-17 07:21] LABS: HEMATOCRIT 31.1 % (37.0-47.0); HEMOGLOBIN 10.1 g/dl (12.5-16.0); MEAN CORPUSCULAR HEMOGLOBIN 29 pg (27.0-31.0)
[2017-12-17 07:38] LABS: CALCIUM 8.1 mg/dL (8.4-10.2); CREATININE, serum 0.49 mg/dL (0.52-1.25); MAGNESIUM 1.8 mg/dL (1.6-2.3); POTASSIUM 3.6 mmol/L (3.4-5.0)
[2017-12-17] MEDS ORDERED: KLONOPIN 1MG1 MG PO ×4 (08:44→09:13)
[2017-12-17] MEDS ORDERED: DEBROX OT (08:53)
[2017-12-17] MEDS ORDERED: MILK OF MA400 MG/52 PO (08:55)
[2017-12-17] MEDS ORDERED: IMODIUM A-D2 MG PO (09:01)
[2017-12-17] MEDS ORDERED: AMOXICILLIN 8751 TAB PO (09:07)
[2017-12-17] MEDS ORDERED: VITAMIN D 50,1.25 MG PO (09:12)
[2017-12-17] MEDS ORDERED: DILAUDID 4MG TAB4 MG PO (09:13)
[2017-12-17] MEDS ORDERED: NORCO 325 MG-51 TAB PO (09:13)
[2017-12-17 09:44] VITALS: BP 103/64; PULSE 81; TEMP 98.4
== END 2017-12-17 14:47 | DRG 854 ==
LOC: COL.ER 22:41 → MEDICAL 12-13 00:23 → ICU 12-13 00:23 → MEDICAL 12-13 09:39 → ICU 12-13 17:00 → SURG 12-14 20:14
PROVIDERS: Emergency Medicine; Family Medicine; Internal Medicine; Nurse Practitioner Family; Physician Assistant; Urology
PROC: 0T7B8DZ Dilation of Bladder with Intraluminal Device, Via Natural or Artificial Opening Endoscopic (ICD-10-PCS; principal; 2017-12-13 18:45)
PROC: BT1D1ZZ Fluoroscopy of Right Kidney, Ureter and Bladder using Low Osmolar Contrast (ICD-10-PCS; 2017-12-13 18:45)
PROC: 02HV33Z Insertion of Infusion Device into Superior Vena Cava, Percutaneous Approach (ICD-10-PCS; 2017-12-13 18:45)
DX: A41.51 Sepsis due to Escherichia coli [E. coli] (principal); N13.6 Pyonephrosis; E46 Unspecified protein-calorie malnutrition; B96.20 Unspecified Escherichia coli [E. coli] as the cause of diseases classified elsewhere; I10 Essential (primary) hypertension; I69.328 Other speech and language deficits following cerebral infarction; I69.398 Other sequelae of cerebral infarction; M79.7 Fibromyalgia; Z87.891 Personal history of nicotine dependence; E87.6 Hypokalemia; E83.42 Hypomagnesemia; R73.9 Hyperglycemia, unspecified
CPT/HCPCS: 99223-AI; 99231-AI; 99232-AI; 99233-AI; 99239; C1769; C2617; J0610; J1100; J1644; J1885; J2405; J2543; J2704; J3010; J3475; J3480; J7030; J7120; Q9967

== ENCOUNTER → 2017-12-20 | Outpatient (REF) ==
[~2017-12-20] MED LIST changes: +ALMACONE 360 M360 ML PO; +AMOXICILLIN 8751 TAB PO; +DEBROX OT; +LEXAPRO 10MG10 MG PO; +NORCO 325 MG-51 TAB PO; +TAMIFLU 75MG75 MG PO
[2017-12-20 10:22] LABS: CALCIUM 8.7 mg/dL (8.4-10.2); CREATININE, serum 0.42 mg/dL (0.52-1.25); POTASSIUM 4.3 mmol/L (3.4-5.0)
== END ==
LOC: ZLAB.STJ 09:40
PROVIDERS: Internal Medicine
DX: R79.89 Other specified abnormal findings of blood chemistry (principal); R68.89 Other general symptoms and signs

== ENCOUNTER → 2017-12-27 | Outpatient (CLI) | payer MEDICARE, MEDICAID ==
[~2017-12-27] MED LIST changes: +DEPO-PROVE150 MG/1 M IM; +DRISDOL50000 IU PO; +LIQUIFILM TEARS15 ML OU; +METROGEL GEL45 GM TP; +PEN-VEE K500 MG PO
[2017-12-27 10:24] LABS: ALBUMIN 3.3 gm/dL (3.5-5.0); BILIRUBIN,TOTAL 0.4 mg/dL (0.0-1.0); CALCIUM 8.8 mg/dL (8.4-10.2); CHOLESTEROL RISK RATIO 5.2; CREATININE, serum 0.46 mg/dL (0.52-1.25); PHOSPHOROUS 3.3 mg/dL (2.5-4.5); POTASSIUM 4.3 mmol/L (3.4-5.0); TOTAL PROTEIN 6.1 gm/dL (6.4-8.2)
== END ==
LOC: ZLAB.STJ 09:41
PROVIDERS: Internal Medicine
DX: G40.A09 Absence epileptic syndrome, not intractable, without status epilepticus (principal); R73.9 Hyperglycemia, unspecified

== ENCOUNTER 2017-12-28 08:35 | Day surgery (SDC) | payer MEDICARE, MEDICAID ==
[~2017-12-28] VITALS: Ht 165.1 cm; Wt 84.6 kg
[2017-12-28] VITALS (7 sets, daily range): BP systolic 101–115; BP diastolic 42–72; PULSE 66–94; TEMP 98–98.3
[~2017-12-28 08:35] MED LIST changes: -DEPO-PROVE150 MG/1 M IM; -DRISDOL50000 IU PO; -LIQUIFILM TEARS15 ML OU; -METROGEL GEL45 GM TP; -PEN-VEE K500 MG PO
[2017-12-28] MEDS ORDERED: DRISDOL50000 IU PO (10:06)
[2017-12-28] MEDS ORDERED: DEPO-PROVE150 MG/1 M IM (10:15)
[2017-12-28] MEDS ORDERED: KLONOPIN 1MG1 MG PO ×2 (10:16→10:19)
[2017-12-28] MEDS ORDERED: NORCO 325 MG-51 TAB PO (10:17)
[2017-12-28] MEDS ORDERED: FERROUS SU325 MG/TAB PO (10:20)
[2017-12-28] MEDS ORDERED: DILAUDID 4MG TAB4 MG PO (10:31)
[2017-12-28] MEDS ORDERED: PEN-VEE K500 MG PO (10:32)
[2017-12-28] MEDS ORDERED: METROGEL GEL45 GM TP (10:33)
[2017-12-28] MEDS ORDERED: LIQUIFILM TEARS15 ML OU ×2 (10:34→10:35)
== END 2017-12-28 13:25 ==
LOC: SDCO 08:35
DX: N20.1 Calculus of ureter (principal); I10 Essential (primary) hypertension; F32.9 Major depressive disorder, single episode, unspecified; I73.9 Peripheral vascular disease, unspecified; N39.0 Urinary tract infection, site not specified; B96.20 Unspecified Escherichia coli [E. coli] as the cause of diseases classified elsewhere; M79.7 Fibromyalgia; Z79.01 Long term (current) use of anticoagulants; Z87.891 Personal history of nicotine dependence; Z86.73 Personal history of transient ischemic attack (TIA), and cerebral infarction without residual deficits
CPT/HCPCS: C1769; C2617; J0690; J1100; J2405; J2704; J3010; J7120

== ENCOUNTER → 2018-01-04 | Outpatient (CLI) | payer MEDICARE, MEDICAID ==
[~2018-01-04] MED LIST changes: +DEPO-PROVE150 MG/1 M IM; +DRISDOL50000 IU PO; +LIQUIFILM TEARS15 ML OU; +METROGEL GEL45 GM TP; +PEN-VEE K500 MG PO
== END ==
LOC: SDCO 08:30 → COL.RAD 09:42 → EDSTATUS 11:00 → SDCO 11:00
DX: N20.0 Calculus of kidney (principal)

== ENCOUNTER → 2018-04-11 | Outpatient (CLI) | payer MEDICARE, MEDICAID | LOC: MC.RAD 08:00 | DX: N63.20 Unspecified lump in the left breast, unspecified quadrant (principal); N64.4 Mastodynia ==

== ENCOUNTER → 2018-04-22 | Outpatient (REF) | LOC: ZLAB.STJ 22:26 | DX: Z01.89 Encounter for other specified special examinations (principal) ==

== ENCOUNTER → 2018-05-30 | Outpatient (REF) | LOC: ZLAB.STJ 09:17 | DX: E63.9 Nutritional deficiency, unspecified (principal) ==

== ENCOUNTER → 2018-12-27 | Outpatient (CLI) | payer MEDICARE, MEDICAID ==
[2018-12-27 12:50] LABS: ALBUMIN 3.1 gm/dL (3.5-5.0); BILIRUBIN,TOTAL 0.4 mg/dL (0.0-1.0); CALCIUM 8.5 mg/dL (8.4-10.2); CHOLESTEROL RISK RATIO 5.6; CREATININE, serum 0.45 mg/dL (0.52-1.25); POTASSIUM 4.3 mmol/L (3.4-5.0); TOTAL PROTEIN 5.9 gm/dL (6.4-8.2)
== END ==
LOC: ZLAB.STJ 10:05
PROVIDERS: Internal Medicine
DX: I63.50 Cerebral infarction due to unspecified occlusion or stenosis of unspecified cerebral artery (principal); E87.6 Hypokalemia; R73.9 Hyperglycemia, unspecified

== ENCOUNTER → 2019-02-23 | Outpatient (CLI) | payer MEDICARE, MEDICAID | LOC: ZCOL.LAB 15:23 | DX: Z01.812 Encounter for preprocedural laboratory examination (principal); Z86.14 Personal history of Methicillin resistant Staphylococcus aureus infection ==

== ENCOUNTER → 2019-03-09 | Outpatient (CLI) | payer MEDICARE, MEDICAID | LOC: ZCOL.LAB 15:13 | DX: Z01.812 Encounter for preprocedural laboratory examination (principal); Z86.14 Personal history of Methicillin resistant Staphylococcus aureus infection ==

== ENCOUNTER → 2019-03-10 | Outpatient (CLI) | payer MEDICARE, MEDICAID ==
[2019-03-10 17:17] LABS: COLLECTION METHOD CATHETER
[2019-03-10 17:33] LABS: AMORPHOUS CRYSTAL Present /uL; MUCOUS Present /lpf; PH 5 (5-8); URINE APPEARANCE Hazy; URINE BACTERIA Rare /hpf; URINE BILIRUBIN Negative (NEGATIVE); URINE BLOOD 1+ (NEGATIVE); URINE COLOR Yellow; URINE GLUCOSE Negative (NEGATIVE); URINE KETONE Negative (NEGATIVE); URINE LEUKOCYTE ESTERASE Negative (NEGATIVE); URINE NITRATE Positive (NEGATIVE); URINE PROTEIN(semi-quant) Negative (NEGATIVE); URINE UROBILINOGEN Negative (NEGATIVE)
== END ==
LOC: ZLAB.STJ 16:43
PROVIDERS: Internal Medicine
DX: R82.90 Unspecified abnormal findings in urine (principal)

== ENCOUNTER 2019-03-22 05:13 | Day surgery (SDC) | payer MEDICARE, MEDICAID ==
[~2019-03-22] VITALS: Ht 172.7 cm; Wt 91.4 kg
[2019-03-22] VITALS (8 sets, daily range): BP systolic 85–114; BP diastolic 49–89; PULSE 78–99; TEMP 97.9–98.1
--- NOTE | 2019-03-22 06:36 | NUR ---
MEDICATION RECONCILIATION ATTEMPTED, PHYSICIAN IN RECORD AT THIS TIME.
--- NOTE | 2019-03-22 10:05 | NUR ---
The patient arrived back to [place] [facility] from the recovery room at this time. The patient appears alert and oriented at this time. The patient reports pain in her right ankle at this time. The nurse educated the patient that she received a second block before she was transferred back to her room. The patient's post operative vital signs were started at this time. The patient's sister was brought back to be at her bedside. The patient is eating a protein bar provided by her sister and reqeusted some chocolate pudding at this time. Call light is within reach. The patient's plaster/matthew wrap dressing to her right lower extremity appears clean, dry and intact. The patient has oxygen in place at 3L per nasal cannula. Will continue to monitor the patient.
--- NOTE | 2019-03-22 10:20 | NUR ---
The patient requests more chocolate pudding at this time. The patient's sister is assisting her to eat the food provided. The patient's vital signs appears stable. The patient's oxygen was weaned down to 2L per nasal cannula. Khoi light is within reach. Will continue to monitor the patient.
--- NOTE | 2019-03-22 10:35 | NUR ---
The patient was given some fresh ice water at this time. The patient was given a PRN dose of [place] two tabs at this time for her continued report of increased pain in her right ankle. The patient's sister remains at her bedside. Will continue to monitor the patient.
--- NOTE | 2019-03-22 10:50 | NUR ---
The patient's oxygen was weaned down to 1L per nasal cannula. The patient continues to report moderate pain in her right ankle at this time. The nurse educated the patient and her sister that some of her pain could be due to the positioning of her ankle in the plaster splint. The sister verbalized understanding at this time. Will continue to monitor the patient.
[2019-03-22] MEDS ORDERED: NORCO 325 MG-7.1 TAB PO (11:09)
[2019-03-22] MEDS ORDERED: CEPHALEXIN500 M1 PO (11:10)
[2019-03-22] MEDS ORDERED: PHENERGAN 25 TA25 MG PO (11:10)
--- NOTE | 2019-03-22 11:20 | NUR ---
The patient is lying down in bed and appears to be resting comfortably on the cart. The patient states her ankle still hurts but it "better". The patient's sister remains at her bedside.
--- NOTE | 2019-03-22 11:45 | NUR ---
The patient states her pain is "much better" and she is "ready to go eat lunch". The patient's sister confirms that the patient is ready to be transferred back to [facility]. Will continue to monitor the patient.
--- NOTE | 2019-03-22 11:49 | NUR ---
Report was called to Cassandra, nurse at [facility], who will be assuming the care of the patient back at their facility. She verbalized understanding of the report given and has no questions for the nurse at this time. She is going to call transportation to let them know to come pick the patient up.
--- NOTE | 2019-03-22 12:00 | NUR ---
The patient's brief was changed and she assisted to get dressed with the help of two nurses and appeared to tolerate the activity well. The patient was transferred from the cart to her personal wheelchair with the total lift at this time. The patient's IV to her right hand was removed and a pressure dressing was applied to the site prior to her transfer to the wheelchair.
--- NOTE | 2019-03-22 12:15 | NUR ---
The patient was escorted out via her personal wheelchair by her sister Gretchen at this time. The patient's belongings and discharge paperwork were sent with her. Transportation from [facility] is present to transport her back to their facility.
== END 2019-03-22 12:15 | disposition home or self-care (01) ==
LOC: SDCO 05:13
DX: M24.574 Contracture, right foot (principal); M19.071 Primary osteoarthritis, right ankle and foot; Z79.899 Other long term (current) drug therapy; I73.9 Peripheral vascular disease, unspecified; G89.29 Other chronic pain; I69.328 Other speech and language deficits following cerebral infarction; I69.398 Other sequelae of cerebral infarction; Z87.891 Personal history of nicotine dependence; K90.0 Celiac disease; F32.9 Major depressive disorder, single episode, unspecified; R53.1 Weakness; I69.859 Hemiplegia and hemiparesis following other cerebrovascular disease affecting unspecified side; Z87.442 Personal history of urinary calculi; M79.7 Fibromyalgia
CPT/HCPCS: C1713; J1100; J2250; J2405; J2704; J3010; J7120

== ENCOUNTER → 2019-07-28 | Outpatient (CLI) | payer MEDICARE, MEDICAID ==
[~2019-07-28] MED LIST changes: +NORCO 325 MG-7.1 TAB PO; +PHENERGAN 25 TA25 MG PO
== END ==
LOC: COL.RAD 10:21
DX: G31.9 Degenerative disease of nervous system, unspecified (principal)

== ENCOUNTER → 2019-08-10 | Outpatient (CLI) | payer MEDICARE, MEDICAID ==
[2019-08-10 14:36] LABS: COLLECTION METHOD CLEAN CATCH
[2019-08-10 14:38] LABS: BASO % 0.7 % (0.0-2.0); EOS % 0.5 % (0-4.0); GRAN # 3.5 (1.4-6.5); GRAN % 57.5 % (42.2-75.2); HEMATOCRIT 41.9 % (37.0-47.0); HEMOGLOBIN 13.3 g/dl (12.5-16.0); LYMPH # 2.1 (1.2-3.4); LYMPH % 34.3 % (20.0-51.0); MEAN CELL VOLUME 86 fl (80.0-100.0); MEAN CORPUSCULAR HEMOGLOBIN 27 pg (27.0-31.0); MEAN CORPUSCULAR HGB CONC 32 g/dl (33.0-37.0); MONO # 0.4 (0.1-0.6); MONO % 6.7 % (1.7-9.3); PLATELET COUNT 152 K/mm3 (130-400); RED BLOOD COUNT 4.88 M/mm3 (4.10-5.30); REDCELL DISTRIBUTION WIDTH-CV 14.9 % (11.5-14.5)
[2019-08-10 14:40] LABS: ALBUMIN 3.1 gm/dL (3.5-5.0); BILIRUBIN,TOTAL 0.3 mg/dL (0.0-1.0); CALCIUM 8.6 mg/dL (8.4-10.2); CREATININE, serum 0.44 (0.52-1.25); POTASSIUM 4.5 mmol/L (3.4-5.0); TOTAL PROTEIN 5.8 gm/dL (6.4-8.2)
[2019-08-10 14:56] LABS: PH 7 (5-8); SQUAMOUS EPITHELIAL 0-2 /hpf; URINE APPEARANCE Cloudy; URINE BACTERIA Many /hpf; URINE BILIRUBIN Negative (NEGATIVE); URINE BLOOD 2+ (NEGATIVE); URINE COLOR Yellow; URINE GLUCOSE Negative (NEGATIVE); URINE KETONE Negative (NEGATIVE); URINE LEUKOCYTE ESTERASE 3+ (NEGATIVE); URINE NITRATE Negative (NEGATIVE); URINE PROTEIN(semi-quant) Negative (NEGATIVE); URINE UROBILINOGEN Negative (NEGATIVE)
== END ==
LOC: ZCOL.LAB 14:22
PROVIDERS: Nurse Practitioner
DX: R79.89 Other specified abnormal findings of blood chemistry (principal); R82.90 Unspecified abnormal findings in urine

== ENCOUNTER → 2020-02-05 | Outpatient (CLI) | payer MEDICARE, MEDICAID | LOC: ZLAB.STJ 15:30 | DX: R50.9 Fever, unspecified (principal) ==

== ENCOUNTER → 2020-04-25 | Outpatient (CLI) | payer MEDICARE, MEDICAID ==
[2020-04-25 17:28] LABS: ALBUMIN 3.6 gm/dL (3.5-5.0); BILIRUBIN,TOTAL 0.6 mg/dL (0.0-1.0); CALCIUM 8.7 mg/dL (8.4-10.2); CREATININE, serum 0.47 (0.52-1.25); MAGNESIUM 2.3 mg/dL (1.6-2.3); POTASSIUM 4.2 mmol/L (3.4-5.0); TOTAL PROTEIN 7.1 gm/dL (6.4-8.2)
== END ==
LOC: ZLAB.STJ 16:03
PROVIDERS: Internal Medicine
DX: E61.2 Magnesium deficiency (principal); R74.8 Abnormal levels of other serum enzymes; N39.0 Urinary tract infection, site not specified; R68.89 Other general symptoms and signs

== ENCOUNTER → 2020-05-09 | Outpatient (CLI) | payer MEDICARE, MEDICAID | LOC: ZCOL.LAB 19:02 | DX: Z11.59 Encounter for screening for other viral diseases (principal); Z01.84 Encounter for antibody response examination ==

== ENCOUNTER → 2020-05-15 | Outpatient (CLI) | payer MEDICARE, MEDICAID | LOC: COL.RAD 09:45 | DX: R74.8 Abnormal levels of other serum enzymes (principal); R10.11 Right upper quadrant pain ==

== ENCOUNTER → 2020-06-04 | Outpatient (CLI) | payer MEDICARE, MEDICAID ==
[2020-06-05 11:22] LABS: ANA SCREEN with REFLEX Negative (Negative)
[2020-06-06 01:04] LABS: BETA-2 GPI IGG AABS <20.0 CU (<=20.0); BETA-2 GPI IGM AABS <20.0 CU (<=20.0)
[2020-06-06 01:05] LABS: CARDIOLIPIN IGG ANTIBODY <20.0 CU (<=20.0)
[2020-06-06 10:19] LABS: BETA 2 IGG-REFLEX SEE PCI
[2020-06-06 10:20] LABS: BETA 2 IGM-REFLEX SEE PCI
== END ==
LOC: ZCOL.LAB 09:59
PROVIDERS: Student in an Organized Health Care Education/Training Program
DX: D68.61 Antiphospholipid syndrome (principal); R51 Headache

== ENCOUNTER → 2020-06-08 | Outpatient (CLI) | payer MEDICARE, MEDICAID ==
[2020-06-11 13:24] LABS: LUPUS ANTICOAGULANT INR 1.1 (0.7-1.3); LUPUS ANTICOAGULANT PT 13.9 Seconds (())
== END ==
LOC: ZLAB.STJ 16:01
PROVIDERS: Student in an Organized Health Care Education/Training Program
DX: D68.61 Antiphospholipid syndrome (principal)

== ENCOUNTER → 2020-08-01 | Outpatient (CLI) | payer MEDICARE, MEDICAID ==
[2020-08-01 17:55] LABS: CALCIUM 8.6 mg/dL (8.4-10.2); CREATININE, serum 0.47 (0.52-1.25); POTASSIUM 4.2 mmol/L (3.4-5.0)
== END ==
LOC: ZLAB.STJ 16:24
PROVIDERS: Internal Medicine
DX: E87.5 Hyperkalemia (principal); R19.7 Diarrhea, unspecified

== ENCOUNTER → 2020-10-02 | Outpatient (CLI) | payer MEDICARE, MEDICAID | LOC: COL.CARD 09:58 | DX: R94.01 Abnormal electroencephalogram [EEG] (principal) ==

== ENCOUNTER → 2020-11-14 | Outpatient (CLI) | payer MEDICARE, MEDICAID | LOC: ZLAB.STJ 11:41 | DX: I63.50 Cerebral infarction due to unspecified occlusion or stenosis of unspecified cerebral artery (principal) ==

== ENCOUNTER → 2020-12-04 | Outpatient (CLI) | payer MEDICARE, MEDICAID ==
[2020-12-04 16:13] LABS: COLLECTION METHOD CLEAN CATCH
[2020-12-04 16:21] LABS: MUCOUS Present /lpf; PH 7 (5-8); SQUAMOUS EPITHELIAL 0-2 /hpf; URINE APPEARANCE Cloudy; URINE BACTERIA Rare /hpf; URINE BILIRUBIN Negative (NEGATIVE); URINE BLOOD Negative (NEGATIVE); URINE COLOR Yellow; URINE GLUCOSE Negative (NEGATIVE); URINE KETONE Negative (NEGATIVE); URINE LEUKOCYTE ESTERASE 1+ (NEGATIVE); URINE NITRATE Negative (NEGATIVE); URINE PROTEIN(semi-quant) 1+ (NEGATIVE); URINE RBC 20-50 /hpf; URINE UROBILINOGEN Negative (NEGATIVE); URINE WBC >50 /hpf
== END ==
LOC: ZLAB.STJ 16:07
PROVIDERS: Internal Medicine
DX: N39.0 Urinary tract infection, site not specified (principal)

== ENCOUNTER → 2021-01-17 | Outpatient (CLI) | payer MEDICARE, MEDICAID ==
[2021-01-17 11:53] LABS: COLLECTION METHOD CATHETER
[2021-01-17 12:12] LABS: MUCOUS Present /lpf; PH 6 (5-8); SQUAMOUS EPITHELIAL None Seen /hpf; URINE APPEARANCE Clear; URINE BACTERIA None Seen /hpf; URINE BILIRUBIN Negative (NEGATIVE); URINE BLOOD Negative (NEGATIVE); URINE COLOR Yellow; URINE GLUCOSE Negative (NEGATIVE); URINE KETONE Negative (NEGATIVE); URINE LEUKOCYTE ESTERASE Negative (NEGATIVE); URINE NITRATE Negative (NEGATIVE); URINE PROTEIN(semi-quant) Negative (NEGATIVE); URINE RBC None Seen /hpf; URINE UROBILINOGEN Negative (NEGATIVE); URINE WBC 0-2 /hpf
== END ==
LOC: ZLAB.STJ 11:44
PROVIDERS: Internal Medicine
DX: R32 Unspecified urinary incontinence (principal)

== ENCOUNTER 2021-03-18 01:11 | Emergency (ER) | payer MEDICARE, MEDICAID ==
[~2021-03-18] VITALS: Ht 172.7 cm; Wt 95.5 kg
[2021-03-18 01:12] VITALS: TEMP 98.1
[2021-03-18 02:50] VITALS: BP 115/65; PULSE 80
== END 2021-03-18 03:00 | disposition home or self-care (01) ==
LOC: COL.ER 01:11
DX: S00.83XA Contusion of other part of head, initial encounter (principal); Z88.1 Allergy status to other antibiotic agents; W06.XXXA Fall from bed, initial encounter

== ENCOUNTER → 2021-04-17 | Outpatient (REF) ==
[~2021-04-17] MED LIST changes: +AJOVY AUTO225 MG/1.5 SQ; +ASPIRIN 81M81 MG/TA2 PO; +CENA K20 MEQ/15 PO; +CLARITIN 1010 MG/TAB PO; +COUMADIN 5MG5 MG/TAB PO; +COUMADIN 6MG6 MG/TAB PO; +DULCOLAX S10 MG/SUPP RC; +FERROUS GL325 MG/TAB PO; +LIPITOR 40MG TA40 MG PO; +LOVENOX 100100 MG/ML SQ; +MAG-OX 400400 MG/TAB PO; +MASON NATURAL S1 CAP; +MELATIN 3 MG-11 TAB PO; +PEPCID 20MG TAB20 MG PO; +PLAQUENIL 200M200 MG PO; +ROXICODONE 55 MG/TAB PO
== END ==
LOC: ZLAB.STJ 14:05
DX: Z01.89 Encounter for other specified special examinations (principal)

== ENCOUNTER → 2021-05-20 | Outpatient (CLI) | payer MEDICARE, MEDICAID | LOC: COL.RAD 09:00 | DX: M53.3 Sacrococcygeal disorders, not elsewhere classified (principal) ==

== ENCOUNTER 2021-06-25 09:54 | Emergency (ER) | payer MEDICARE, MEDICAID ==
[~2021-06-25] VITALS: Ht 172.7 cm; Wt 90.9 kg
[~2021-06-25 09:54] MED LIST changes: -AJOVY AUTO225 MG/1.5 SQ; -ASPIRIN 81M81 MG/TA2 PO; -CENA K20 MEQ/15 PO; -CLARITIN 1010 MG/TAB PO; -COUMADIN 5MG5 MG/TAB PO; -COUMADIN 6MG6 MG/TAB PO; -DULCOLAX S10 MG/SUPP RC; -FERROUS GL325 MG/TAB PO; -LIPITOR 40MG TA40 MG PO; -LOVENOX 100100 MG/ML SQ; -MAG-OX 400400 MG/TAB PO; -MASON NATURAL S1 CAP; -MELATIN 3 MG-11 TAB PO; -PEPCID 20MG TAB20 MG PO; -PLAQUENIL 200M200 MG PO; -ROXICODONE 55 MG/TAB PO
[2021-06-25 11:33] LABS: BASO % 0.5 % (0.0-2.0); EOS % 0.3 % (0-4.0); GRAN # 3.8 (1.4-6.5); GRAN % 65.6 % (42.2-75.2); HEMATOCRIT 44.3 % (37.0-47.0); HEMOGLOBIN 13.9 g/dl (12.5-16.0); INR 2.6 (0.8-3.0); LYMPH # 1.6 (1.2-3.4); LYMPH % 27.1 % (20.0-51.0); MEAN CELL VOLUME 91 fl (80.0-100.0); MEAN CORPUSCULAR HEMOGLOBIN 29 pg (27.0-31.0); MEAN CORPUSCULAR HGB CONC 31 g/dl (33.0-37.0); MEAN PLATELET VOLUME 10.2 fl (7.4-10.4); MONO # 0.4 (0.1-0.6); MONO % 6.2 % (1.7-9.3); PLATELET COUNT 128 K/mm3 (130-400); RED BLOOD COUNT 4.88 M/mm3 (4.10-5.30)
[2021-06-25 11:36] LABS: ALBUMIN 3.5 gm/dL (3.5-5.0); BILIRUBIN,TOTAL 0.3 mg/dL (0.0-1.0); CALCIUM 8.2 mg/dL (8.4-10.2); CREATININE, serum 0.45 (0.52-1.25); POTASSIUM 4.3 mmol/L (3.4-5.0); TOTAL PROTEIN 6.6 gm/dL (6.4-8.2)
[2021-06-25 16:00] VITALS: BP 112/66; PULSE 77; TEMP 97.4
== END 2021-06-25 16:35 | disposition home or self-care (01) ==
LOC: COL.ER 09:54
PROVIDERS: Personal Emergency Response Attendant
DX: N93.9 Abnormal uterine and vaginal bleeding, unspecified (principal); Z87.442 Personal history of urinary calculi; Z86.73 Personal history of transient ischemic attack (TIA), and cerebral infarction without residual deficits; Z79.01 Long term (current) use of anticoagulants; Z87.891 Personal history of nicotine dependence; Z79.02 Long term (current) use of antithrombotics/antiplatelets

== ENCOUNTER 2021-06-30 11:51 | Inpatient (IN) | payer MEDICARE, MEDICAID ==
[2021-06-30] VITALS (13 sets, daily range): BP systolic 105–126; BP diastolic 13–78; PULSE 82–105; TEMP 97.9–98.3
[~2021-06-30] VITALS: Ht 172.7 cm; Wt 108.0 kg
[~2021-06-30 11:51] MED LIST changes: -AJOVY AUTO225 MG/1.5 SQ; -ASPIRIN 81M81 MG/TA2 PO; -CENA K20 MEQ/15 PO; -CLARITIN 1010 MG/TAB PO; -COUMADIN 5MG5 MG/TAB PO; -COUMADIN 6MG6 MG/TAB PO; -DULCOLAX S10 MG/SUPP RC; -FERROUS GL325 MG/TAB PO; -LIPITOR 40MG TA40 MG PO; -LOVENOX 100100 MG/ML SQ; -MAG-OX 400400 MG/TAB PO; -MASON NATURAL S1 CAP; -MELATIN 3 MG-11 TAB PO; -PEPCID 20MG TAB20 MG PO; -PLAQUENIL 200M200 MG PO; -ROXICODONE 55 MG/TAB PO
[2021-06-30 12:58] LABS: BASO # 0.1 (0.0-0.2); BASO % 0.8 % (0.0-2.0); EOS % 0.2 % (0-4.0); GRAN # 3.7 (1.4-6.5); GRAN % 59.5 % (42.2-75.2); LYMPH # 1.9 (1.2-3.4); LYMPH % 31.6 % (20.0-51.0); MEAN CELL VOLUME 94 fl (80.0-100.0); MEAN CORPUSCULAR HGB CONC 31 g/dl (33.0-37.0); MEAN PLATELET VOLUME 10.4 fl (7.4-10.4); MONO # 0.5 (0.1-0.6); MONO % 7.7 % (1.7-9.3); PLATELET COUNT 185 K/mm3 (130-400); RED BLOOD COUNT 2.73 M/mm3 (4.10-5.30); REDCELL DISTRIBUTION WIDTH-CV 15.7 % (11.5-14.5)
[2021-06-30 12:59] LABS: HEMATOCRIT 25.7 % (37.0-47.0); HEMOGLOBIN 7.9 g/dl (12.5-16.0); MEAN CORPUSCULAR HEMOGLOBIN 29 pg (27.0-31.0)
[2021-06-30 13:13] LABS: ALBUMIN 3.2 gm/dL (3.5-5.0); BILIRUBIN,TOTAL 0.1 mg/dL (0.0-1.0); C-REACTIVE PROTEIN 1.3 mg/dL (0.0-0.9); CREATININE, serum 0.63 (0.52-1.25); POTASSIUM 3.8 mmol/L (3.4-5.0); TOTAL PROTEIN 5.6 gm/dL (6.4-8.2)
[2021-06-30] MEDS ORDERED: MASON NATURAL S1 CAP (14:08)
[2021-06-30] MEDS ORDERED: MELATIN 3 MG-11 TAB PO (14:11)
[2021-06-30] MEDS ORDERED: MAG-OX 400400 MG/TAB PO (14:13)
[2021-06-30] MEDS ORDERED: LIPITOR 40MG TA40 MG PO (14:14)
[2021-06-30] MEDS ORDERED: PHENERGAN 25 TA25 MG PO (14:16)
[2021-06-30] MEDS ORDERED: PEPCID 20MG TAB20 MG PO (14:18)
[2021-06-30] MEDS ORDERED: ROXICODONE 55 MG/TAB PO (14:24)
[2021-06-30] MEDS ORDERED: CENA K20 MEQ/15 PO (14:27)
[2021-06-30 14:51] LABS: INR 2.6 (0.8-3.0); PROTHROMBIN TIME 28.6 SECONDS (9.7-12.8)
--- NOTE | 2021-06-30 16:00 | NUR ---
Report received from ER nurse, pt brought up to the floor with the ED nurse. Pt resting in bed, transferred over to bed with slide board and assistance of 3. Pt is unable to see, cannot focus eyes, sister Gretchen and JADE at bedside. Discussed plan of care and will call hospitalist and OBGYN.
[2021-06-30 16:07] LABS: IRON,SERUM 77 ug/dL (35-150)
[2021-06-30 16:16] LABS: TOTAL IRON BINDING CAPACITY 281 ug/dL (265-497)
[2021-06-30] MEDS ORDERED: DULCOLAX S10 MG/SUPP RC (17:34)
[2021-06-30] MEDS ORDERED: FERROUS GL325 MG/TAB PO (17:38)
[2021-06-30] MEDS ORDERED: PLAQUENIL 200M200 MG PO (17:40)
--- NOTE | 2021-06-30 17:40 | NUR ---
Started 1st unit of PRBCs at this time, verified with 2nd RN. Edcuated on s/sx of a transfusion reaction, will remsin with pt for first 15 minutes.
[2021-06-30] MEDS ORDERED: ASPIRIN 81M81 MG/TA2 PO (17:41)
[2021-06-30] MEDS ORDERED: CLARITIN 1010 MG/TAB PO (17:44)
[2021-06-30] MEDS ORDERED: AJOVY AUTO225 MG/1.5 SQ (17:45)
[2021-06-30] MEDS ORDERED: PRIL40 PO (17:47)
[2021-06-30] MEDS ORDERED: COUMADIN 5MG5 MG/TAB PO (17:48)
[2021-06-30] MEDS ORDERED: COUMADIN 6MG6 MG/TAB PO (17:49)
[2021-06-30] MEDS ORDERED: LIQUIFILM TEARS15 ML OU (17:50)
--- NOTE | 2021-06-30 19:08 | NUR ---
Pt still has blood transufiion of 1st unit PRBCs running at this time, tolerating well, resting in bed with sister at bedside to assist with needs. Report given to nightshift nurse who will resume care.
--- NOTE | 2021-06-30 20:45 | NUR ---
Pt. laying in bed. Pt. is A&OX3 but needs constant reminders. Shift assessment complete. IV to rt. ac patent. Pt. reports pain at a 5 on pain scale, will give pain meds per orders. Pt. denies further needs, call light within reach.
--- NOTE | 2021-06-30 21:53 | NUR ---
Second unit of PRBC's started at this time. Vitals stable. Reviewed transfusion reactions with the pt. Pt. voices understanding.
[2021-07-01] VITALS (16 sets, daily range): BP systolic 89–121; BP diastolic 49–86; PULSE 81–101; TEMP 97.7–98.5
[2021-07-01 01:19] LABS: HEMATOCRIT 28.8 % (37.0-47.0); HEMOGLOBIN 9.2 g/dl (12.5-16.0)
[2021-07-01 06:46] LABS: BASO % 0.8 % (0.0-2.0); EOS % 0.4 % (0-4.0); GRAN # 2.9 (1.4-6.5); GRAN % 57.1 % (42.2-75.2); LYMPH # 1.8 (1.2-3.4); LYMPH % 34.8 % (20.0-51.0); MEAN CELL VOLUME 96 fl (80.0-100.0); MEAN CORPUSCULAR HGB CONC 32 g/dl (33.0-37.0); MEAN PLATELET VOLUME 10.4 fl (7.4-10.4); MONO # 0.3 (0.1-0.6); MONO % 6.5 % (1.7-9.3); PLATELET COUNT 135 K/mm3 (130-400); RED BLOOD COUNT 2.63 M/mm3 (4.10-5.30); REDCELL DISTRIBUTION WIDTH-CV 15.8 % (11.5-14.5)
[2021-07-01 06:50] LABS: HEMATOCRIT 25.2 % (37.0-47.0); MEAN CORPUSCULAR HEMOGLOBIN 30 pg (27.0-31.0); PROTHROMBIN TIME 22.3 SECONDS (9.7-12.8)
[2021-07-01 06:51] LABS: CALCIUM 7.8 mg/dL (8.4-10.2); CREATININE, serum 0.63 (0.52-1.25); MAGNESIUM 2.1 mg/dL (1.6-2.3); POTASSIUM 3.6 mmol/L (3.4-5.0)
--- NOTE | 2021-07-01 13:30 | NUR ---
Tamiko mariscal for PICC line placement
[2021-07-01 15:16] LABS: HEMATOCRIT 24.2 % (37.0-47.0); HEMOGLOBIN 7.6 g/dl (12.5-16.0)
[2021-07-01 15:19] LABS: INR 1.9 (0.8-3.0); PROTHROMBIN TIME 20.7 SECONDS (9.7-12.8)
--- NOTE | 2021-07-01 19:40 | NUR ---
Patient doing well throughout the day, sister at bedside this AM and afternoon. Patient is forgetfull and often repeats herself. Contractures noted. Redness to coccyx, repositioned patient approximately every 2 hours to either side. Heel protectors on BLE, SCDs to BLE. PICC line placed to SHAYAN by Tamiko this afternoon. Large loose BM today. Incontinent care provided throughout the day. Large clots noted in brief this AM, No clots noted this afternoon; Patient continues bleeding. Patient and sister aware of procedure in AM. Vitamin K administered this evening; educated patient and sister on medication. All questions answered. Patient denies further needs at this time. Reported off to shift coordinator.
--- NOTE | 2021-07-01 19:52 | NUR ---
PATIENT RECIEVED IN BED ALERT AND FORGETFULL. SISTER AT BEDSIDE. C/O ABDOMINAL UPSET. RECIEVED ZOFRAN. IVF INFUSING. PATIENT INCONTNENT OF URINE, SARTHAK CARE PROVIDED. DENIES PAIN. NO SOB NOTED. TURNED AND REPOSITION WITH TWO ASSISTED. CALL LIGHT WITHIN REACH. ON AIRBED FOR SKIN PROTECTION. WILL CONTINUE TO MONITOR.
[2021-07-02] VITALS (26 sets, daily range): BP systolic 72–134; BP diastolic 33–65; PULSE 69–94; TEMP 97–98.6
--- NOTE | 2021-07-02 02:08 | NUR ---
PATIENT PASSES LARGE CLOTS DURING SARTHAK CARE. B/P 80/43, HOSPITALIST SUNDAY GARCIA MADE AWARE, H&H ORDERED.
--- NOTE | 2021-07-02 04:27 | NUR ---
PATIENT STARTED BLOOD TRANSFUSION. VSS. PATIENT TOLERATED FIRST 15 MINUTES.
--- NOTE | 2021-07-02 06:35 | NUR ---
BLOOD TRANSFUSION COMPLETED. VSS. TOLERATED TRANSFUSION WELL. SISTER AT BEDSIDE. PATIENT WENT DOWN FOR PROCEDURE. WILL CONTINUE TO MONITOR.
--- NOTE | 2021-07-02 09:16 | NUR ---
Report received from davide Serrano left floor for OR with OR staff. Will continue to monitor.
--- NOTE | 2021-07-02 09:16 | NUR ---
Assessment charted. pt back form OR, family Gretchen at bedside. Feels nauseated, will call and try and get PRN orders. Arjo bed in place, assisting pt. Resting right now. Incontinent of urine, will change brief. Pt returned from OR at 0825, VSS. Will conitnue to monitor.
--- NOTE | 2021-07-02 09:20 | NUR ---
PICC intact right upper arm with large amount of dried reddish drainage under dressing. Sterile dressing change done. No further drainage noted.
[2021-07-02 09:38] LABS: INR 1.5 (0.8-3.0); PROTHROMBIN TIME 17.2 SECONDS (9.7-12.8)
[2021-07-02 09:41] LABS: BASO % 0.3 % (0.0-2.0); EOS # 0.1 (0.0-0.7); EOS % 1.4 % (0-4.0); GRAN # 2.3 (1.4-6.5); MEAN CELL VOLUME 98 fl (80.0-100.0); MEAN CORPUSCULAR HGB CONC 31 g/dl (33.0-37.0); MEAN PLATELET VOLUME 10.1 fl (7.4-10.4); MONO # 0.3 (0.1-0.6); PLATELET COUNT 103 K/mm3 (130-400); RED BLOOD COUNT 2.14 M/mm3 (4.10-5.30); REDCELL DISTRIBUTION WIDTH-CV 16.1 % (11.5-14.5)
[2021-07-02 09:46] LABS: CALCIUM 6.9 mg/dL (8.4-10.2); CREATININE, serum 0.35 (0.52-1.25); POTASSIUM 3.8 mmol/L (3.4-5.0)
[2021-07-02 09:53] LABS: HEMOGLOBIN 6.6 g/dl (12.5-16.0); MEAN CORPUSCULAR HEMOGLOBIN 31 pg (27.0-31.0)
--- NOTE | 2021-07-02 14:14 | NUR ---
Patient is seen in bed with her sister at bedside. Sister, Gretchen Ku #[phone], states she is the court appointed guardian and conservator. The patient is from [facility] and plans to return back there when discharged. ANICETO Alexandre has made contact with the facility for copy of guardianship and to provide updates. Patient is wheelchair bound. PCP is Dr. Conley with [facility]. Preferred pharmacy is [facility] here in [place]. Neither Gretchen nor Lisa have any concerns about this hospital stay or the planned return to [facility]. DISCHARGE PLAN: RETURN TO [facility]
--- NOTE | 2021-07-02 18:39 | NUR ---
Pt has done well over shift, 2 units of PRBCs given, verified with second RN and remianed with pt for first 15 mintues of each infusion and educated on s/sx of a transfusion reaction. Pt doing well, states the phenergan helps her the most with nausea ,received it q6h PRN per request. Denies pain, repositioned often, placed morataya earlier and pt tolerated very well and since placing morataya pt has had minimal output of clots vaginally. Sister, Gretchen at bedside to assist most of shift. Will give report to nightshift nurse who will resume care.
--- NOTE | 2021-07-02 19:15 | NUR ---
PATIENT RESTING IN BED. DENIES ANY DISCOMFORT AT THIS TIME. SISTER AT BEDSIDE FEEDING PATIENT HER DINER. CHAPMAN CATHER IN PLACE WITH CLEAR YELLOW URINE. ON IV FLUID NS ORDERED. CALL WITHIN REACH. WILL CONTINUE TO MONITOR.
[2021-07-02 19:39] LABS: HEMOGLOBIN 10.8 g/dl (12.5-16.0)
[2021-07-03] VITALS (11 sets, daily range): BP systolic 92–128; BP diastolic 46–85; PULSE 77–101; TEMP 97.8–98
--- NOTE | 2021-07-03 04:40 | NUR ---
PATIENT SLEFT WELL, VSS. CHAPMAN CATHETER WITH CLEAR YELLOW URINE. REPEAT HEMOGLOBIN 10.8. NO CLOTH NOTED. PATIENT NPO FOR PROCEDURE TODAY. WILL CONTINUE TO MONITOR.
--- NOTE | 2021-07-03 06:59 | NUR ---
Patient to OR by bed.
[2021-07-03 07:16] LABS: BASO % 0.6 % (0.0-2.0); EOS # 0.1 (0.0-0.7); HEMOGLOBIN 10.3 g/dl (12.5-16.0); LYMPH # 1.4 (1.2-3.4); LYMPH % 28.9 % (20.0-51.0); MEAN CELL VOLUME 96 fl (80.0-100.0); MEAN CORPUSCULAR HEMOGLOBIN 30 pg (27.0-31.0); MEAN CORPUSCULAR HGB CONC 32 g/dl (33.0-37.0); MEAN PLATELET VOLUME 10.2 fl (7.4-10.4); MONO # 0.4 (0.1-0.6); MONO % 7.1 % (1.7-9.3); PLATELET COUNT 139 K/mm3 (130-400); REDCELL DISTRIBUTION WIDTH-CV 16.5 % (11.5-14.5)
[2021-07-03 07:18] LABS: HEMATOCRIT 32.7 % (37.0-47.0)
[2021-07-03 07:21] LABS: INR 1.2 (0.8-3.0); PROTHROMBIN TIME 12.8 SECONDS (9.7-12.8)
[2021-07-03 07:31] LABS: CALCIUM 7.4 mg/dL (8.4-10.2); CREATININE, serum 0.47 (0.52-1.25); POTASSIUM 3.9 mmol/L (3.4-5.0)
--- NOTE | 2021-07-03 10:15 | NUR ---
Patient up from OR. Answers question appropiately. Post op VS and post op fluids infusing per orders. Lap x 3 with bandaids are CDI. Assessment complete. Patient states mild cramping, repositioned at this time, warm blanket for abdomen. Denies further needs at this time.
--- NOTE | 2021-07-03 12:50 | NUR ---
Patient complains of heartburn, medications given per orders.
--- NOTE | 2021-07-03 18:23 | NUR ---
Patient doing well post op. Sister at bedside assisting with meals. Repositioned throughout the day. Morphine given x1 today for cramping pain. Patient denies needs at this time. Will report off to blind cleaner.
[2021-07-04 04:13] VITALS: BP 110/62; PULSE 78; TEMP 97.9
--- NOTE | 2021-07-04 06:08 | NUR ---
PATIENT RESTING IN BED WITH EYES OPEN. VITAL SIGNS STABLE. ABDOMINAL INCISION SITE WITH BANDAIDS INTACT. OXYCODONE X2 GIVEN FOR PAIN WITH GOOD EFFECT. PATIENT C/O CONSTIPATION SUPPOSITORY GIVEN. CHAPMAN TO GRAVITY WITH CLEAR YELLOW URINE. PATIENT TURNED AND REPOSITION Q 2 HRS. TOLERATED GENERAL DIET. CALL WITH IN REACH. WILL CONTINUE TO MONITOR.
[2021-07-04 07:02] LABS: HEMOGLOBIN 10.5 g/dl (12.5-16.0); MEAN CELL VOLUME 97 fl (80.0-100.0); MEAN CORPUSCULAR HEMOGLOBIN 31 pg (27.0-31.0); MEAN CORPUSCULAR HGB CONC 32 g/dl (33.0-37.0); MEAN PLATELET VOLUME 10.2 fl (7.4-10.4); PLATELET COUNT 153 K/mm3 (130-400); RED BLOOD COUNT 3.43 M/mm3 (4.10-5.30)
[2021-07-04 07:09] LABS: HEMATOCRIT 33.2 % (37.0-47.0)
[2021-07-04 07:17] LABS: CALCIUM 7.6 mg/dL (8.4-10.2); CREATININE, serum 0.5 (0.52-1.25); POTASSIUM 3.8 mmol/L (3.4-5.0)
[2021-07-04 07:36] LABS: INR 1.2 (0.8-3.0); PROTHROMBIN TIME 13.2 SECONDS (9.7-12.8)
[2021-07-04 07:51] VITALS: PULSE 92; TEMP 98.2
[2021-07-04 07:52] VITALS: BP 108/63; PULSE 91; TEMP 98.2
--- NOTE | 2021-07-04 08:00 | NUR ---
Patient in bed resting. Alert and oriented to self and situation. Speech is repetative and patient needs constant reminders. Repositioned in bed at this time. Heel protectors and pillows beneath BLE. SCDS to BLE. BUE elevated on pillows. Denies further needs at this time.
[2021-07-04] MEDS ORDERED: ROXICODONE 55 MG/TAB PO ×2 (08:22→10:26)
[2021-07-04] MEDS ORDERED: LOVENOX 100100 MG/ML SQ (10:25)
--- NOTE | 2021-07-04 11:04 | NUR ---
Patient will transfer back to [facility] today to resume intermediate jail care. pick pack worker met with patient's guardian and IM presented and completed. Worker notified Peet at [facility] and faxed clinical information and discharge orders. Awaiting a time of transfer via facility van.
--- NOTE | 2021-07-04 11:30 | NUR ---
Sinha catheter discontinued per orders, pericare provided. Patient tolerated procedure well.
[2021-07-04 11:54] VITALS: BP 108/63; PULSE 91; TEMP 98.2
--- NOTE | 2021-07-04 13:10 | NUR ---
Patient incontinent of urine prior to discharge, pericare provided. Sister at bedside. x2 Assist to dress patient and transfer to wheelchair with tanya lift. Patient denies needs at this time. Report called to [facility]. Patient out by wheelchair with family and [facility] staff.
--- NOTE | 2021-07-04 14:08 | NUR ---
Patient was determined to meet skilled care at [facility]. Skilled orders faxed to [facility] and guardian is aware of this.
== END 2021-07-04 13:10 | DRG 742 ==
LOC: COL.ER 11:51 → SURG 13:55
PROVIDERS: Family Medicine; Internal Medicine; Physician Assistant; ADMIT Obstetrics & Gynecology
PROC: 0UT98ZZ Resection of Uterus, Via Natural or Artificial Opening Endoscopic (ICD-10-PCS; principal; 2021-06-30)
PROC: 0UDB8ZZ Extraction of Endometrium, Via Natural or Artificial Opening Endoscopic (ICD-10-PCS; 2021-06-30)
PROC: 02HV33Z Insertion of Infusion Device into Superior Vena Cava, Percutaneous Approach (ICD-10-PCS; 2021-07-01)
DX: N92.0 Excessive and frequent menstruation with regular cycle (principal); D62 Acute posthemorrhagic anemia; D68.61 Antiphospholipid syndrome; I67.7 Cerebral arteritis, not elsewhere classified; I67.6 Nonpyogenic thrombosis of intracranial venous system; E66.9 Obesity, unspecified; E78.5 Hyperlipidemia, unspecified; G43.909 Migraine, unspecified, not intractable, without status migrainosus; M79.7 Fibromyalgia; I95.9 Hypotension, unspecified; I49.3 Ventricular premature depolarization; K90.0 Celiac disease; Z86.14 Personal history of Methicillin resistant Staphylococcus aureus infection; Z86.73 Personal history of transient ischemic attack (TIA), and cerebral infarction without residual deficits
CPT/HCPCS: 99223; 99232-AI; 99233-AI; A4314; C1751; J0690; J1100; J1650; J1885; J2270; J2405; J2550; J2704; J3010; J3430; J7030; J7040; J7042; J7050; J7120; P9016

== ENCOUNTER → 2021-06-30 | Outpatient (CLI) | payer MEDICARE, MEDICAID ==
[~2021-06-30] MED LIST changes: +AJOVY AUTO225 MG/1.5 SQ; +ASPIRIN 81M81 MG/TA2 PO; +CENA K20 MEQ/15 PO; +CLARITIN 1010 MG/TAB PO; +COUMADIN 5MG5 MG/TAB PO; +COUMADIN 6MG6 MG/TAB PO; +DULCOLAX S10 MG/SUPP RC; +FERROUS GL325 MG/TAB PO; +LIPITOR 40MG TA40 MG PO; +LOVENOX 100100 MG/ML SQ; +MAG-OX 400400 MG/TAB PO; +MASON NATURAL S1 CAP; +MELATIN 3 MG-11 TAB PO; +PEPCID 20MG TAB20 MG PO; +PLAQUENIL 200M200 MG PO; +ROXICODONE 55 MG/TAB PO
[2021-06-30 09:43] LABS: BASO % 0.6 % (0.0-2.0); EOS % 0.4 % (0-4.0); GRAN # 2.4 (1.4-6.5); GRAN % 50.7 % (42.2-75.2); LYMPH % 41.8 % (20.0-51.0); MEAN CELL VOLUME 93 fl (80.0-100.0); MEAN CORPUSCULAR HGB CONC 31 g/dl (33.0-37.0); MONO # 0.3 (0.1-0.6); MONO % 6.1 % (1.7-9.3); PLATELET COUNT 147 K/mm3 (130-400); RED BLOOD COUNT 2.35 M/mm3 (4.10-5.30); REDCELL DISTRIBUTION WIDTH-CV 15.6 % (11.5-14.5)
[2021-06-30 09:47] LABS: HEMATOCRIT 21.9 % (37.0-47.0); HEMOGLOBIN 6.7 g/dl (12.5-16.0); MEAN CORPUSCULAR HEMOGLOBIN 29 pg (27.0-31.0)
[2021-06-30 09:55] LABS: INR 2.3 (0.8-3.0); PROTHROMBIN TIME 25.5 SECONDS (9.7-12.8)
== END ==
LOC: ZLAB.STJ 09:27
PROVIDERS: Internal Medicine
DX: M79.7 Fibromyalgia (principal); I67.6 Nonpyogenic thrombosis of intracranial venous system

== ENCOUNTER → 2021-07-16 | Outpatient (CLI) | payer MEDICARE, MEDICAID ==
[~2021-07-16] MED LIST changes: +AJOVY AUTO225 MG/1.5 SQ; +ASPIRIN 81M81 MG/TA2 PO; +CENA K20 MEQ/15 PO; +CLARITIN 1010 MG/TAB PO; +COUMADIN 5MG5 MG/TAB PO; +COUMADIN 6MG6 MG/TAB PO; +DULCOLAX S10 MG/SUPP RC; +FERROUS GL325 MG/TAB PO; +LIPITOR 40MG TA40 MG PO; +LOVENOX 100100 MG/ML SQ; +MAG-OX 400400 MG/TAB PO; +MASON NATURAL S1 CAP; +MELATIN 3 MG-11 TAB PO; +PEPCID 20MG TAB20 MG PO; +PLAQUENIL 200M200 MG PO; +ROXICODONE 55 MG/TAB PO
[2021-07-16 21:03] LABS: BASO % 0.8 % (0.0-2.0); EOS % 0.6 % (0-4.0); GRAN # 2.8 (1.4-6.5); GRAN % 52.4 % (42.2-75.2); HEMOGLOBIN 11.3 g/dl (12.5-16.0); LYMPH % 38.2 % (20.0-51.0); MEAN CELL VOLUME 94 fl (80.0-100.0); MEAN CORPUSCULAR HEMOGLOBIN 29 pg (27.0-31.0); MEAN CORPUSCULAR HGB CONC 31 g/dl (33.0-37.0); MEAN PLATELET VOLUME 9.9 fl (7.4-10.4); MONO # 0.4 (0.1-0.6); MONO % 7.8 % (1.7-9.3); PLATELET COUNT 227 K/mm3 (130-400); RED BLOOD COUNT 3.87 M/mm3 (4.10-5.30); REDCELL DISTRIBUTION WIDTH-CV 14.3 % (11.5-14.5)
[2021-07-16 21:04] LABS: HEMATOCRIT 36.2 % (37.0-47.0)
== END ==
LOC: ZLAB.STJ 20:52
PROVIDERS: Internal Medicine
DX: Z01.89 Encounter for other specified special examinations (principal)

== ENCOUNTER → 2021-08-19 | Outpatient (CLI) | payer MEDICARE, MEDICAID | LOC: COL.RAD 08:16 | DX: R10.31 Right lower quadrant pain (principal); Z90.710 Acquired absence of both cervix and uterus | CPT/HCPCS: Q9967 ==

== ENCOUNTER → 2022-04-01 | Outpatient (REF) ==
[2022-04-01 15:29] LABS: COLLECTION METHOD CLEAN CATCH
[2022-04-01 15:49] LABS: MUCOUS Present (NOT PRESENT); PH 7 (5-8); SQUAMOUS EPITHELIAL 0-2 /hpf (0-10); URINE APPEARANCE Hazy (CLEAR/HAZY); URINE BACTERIA Rare /hpf (NONE SEEN); URINE BILIRUBIN Negative (NEGATIVE); URINE BLOOD Negative (NEGATIVE); URINE COLOR Yellow (YELLOW); URINE GLUCOSE Negative (NEGATIVE); URINE KETONE Negative (NEGATIVE); URINE LEUKOCYTE ESTERASE Trace (NEGATIVE); URINE NITRATE Negative (NEGATIVE); URINE PROTEIN(semi-quant) Negative (NEGATIVE); URINE RBC 0-2 /hpf (0-2); URINE UROBILINOGEN Negative (NEGATIVE)
== END ==
LOC: ZLAB.STJ 15:25
PROVIDERS: Internal Medicine
DX: R32 Unspecified urinary incontinence (principal)

== ENCOUNTER → 2022-04-09 | Outpatient (CLI) | payer MEDICARE, MEDICAID | LOC: MC.RAD 09:15 | DX: N63.20 Unspecified lump in the left breast, unspecified quadrant (principal); N63.10 Unspecified lump in the right breast, unspecified quadrant ==

== ENCOUNTER 2022-05-05 16:53 | Inpatient (IN) | payer MEDICARE, MEDICAID ==
[~2022-05-05] VITALS: Ht 172.7 cm; Wt 88.9 kg
[2022-05-05 18:05] LABS: BASO % 0.3 % (0.0-2.0); EOS % 0.1 % (0.0-4.0); GRAN # 10.7 K/mm3 (1.4-6.5); GRAN % 79.1 % (42.2-75.2); HEMATOCRIT 40.4 % (37.0-47.0); HEMOGLOBIN 12.8 g/dl (12.5-16.0); LYMPH # 1.6 K/mm3 (1.2-3.4); LYMPH % 12.1 % (20.0-51.0); MEAN CELL VOLUME 85 fl (80.0-100.0); MEAN CORPUSCULAR HEMOGLOBIN 27 pg (27-31); MEAN CORPUSCULAR HGB CONC 32 g/dl (33.0-37.0); MEAN PLATELET VOLUME 10.8 fl (7.4-10.4); MONO # 1.1 K/mm3 (0.1-0.6); MONO % 8.1 % (1.7-9.3); PLATELET COUNT 128 K/mm3 (130-400); RED BLOOD COUNT 4.76 M/mm3 (4.10-5.30); REDCELL DISTRIBUTION WIDTH-CV 15.1 % (11.5-14.5)
[2022-05-05 18:26] LABS: ALBUMIN 2.6 gm/dL (3.5-5.0); BILIRUBIN,TOTAL 0.4 mg/dL (0.2-1.2); C-REACTIVE PROTEIN 21.11 mg/dL (0.00-0.50); CALCIUM 8.6 mg/dL (8.4-10.2); CREATININE, serum 0.68 mg/dL (0.57-1.11); POTASSIUM 4.1 mmol/L (3.5-4.5); TOTAL PROTEIN 6.5 gm/dL (6.2-8.1)
[2022-05-05 18:39] LABS: COLLECTION METHOD CLEAN CATCH
[2022-05-05 18:53] LABS: MUCOUS Present (NOT PRESENT); PH 5 (5-8); URINE APPEARANCE Cloudy (CLEAR/HAZY); URINE BACTERIA Rare /hpf (NONE SEEN); URINE BILIRUBIN Negative (NEGATIVE); URINE BLOOD Negative (NEGATIVE); URINE COLOR Yellow (YELLOW); URINE GLUCOSE Negative (NEGATIVE); URINE KETONE Trace (NEGATIVE); URINE LEUKOCYTE ESTERASE 2+ (NEGATIVE); URINE NITRATE Negative (NEGATIVE); URINE PROTEIN(semi-quant) 1+ (NEGATIVE); URINE UROBILINOGEN Negative (NEGATIVE)
[2022-05-05 22:49] VITALS: BP 111/60; PULSE 87; TEMP 98.1
[2022-05-06 03:42] VITALS: BP 91/58; PULSE 83; TEMP 97.6
--- NOTE | 2022-05-06 04:28 | NUR ---
Pt to the floor at approximately 2240. Pt is pleasant and A&Ox3, pt requires a tanya lift for transfers. Purewick is in place as well as a brief. Pts personal wheelchair has been placed in the bathroom of the room. Pt has had minimal complaints throughout the shift. Assessment completed without difficulty. Call light within reach.
[2022-05-06 08:07] VITALS: BP 127/99; PULSE 84; TEMP 98.1
[2022-05-06 10:20] LABS: BASO % 0.2 % (0.0-2.0); EOS % 0.1 % (0.0-4.0); GRAN # 7.2 K/mm3 (1.4-6.5); GRAN % 76.4 % (42.2-75.2); LYMPH # 1.3 K/mm3 (1.2-3.4); LYMPH % 14.2 % (20.0-51.0); MEAN CELL VOLUME 86 fl (80.0-100.0); MEAN CORPUSCULAR HGB CONC 32 g/dl (33.0-37.0); MEAN PLATELET VOLUME 10.8 fl (7.4-10.4); MONO # 0.8 K/mm3 (0.1-0.6); MONO % 8.5 % (1.7-9.3); PLATELET COUNT 111 K/mm3 (130-400); RED BLOOD COUNT 3.78 M/mm3 (4.10-5.30); REDCELL DISTRIBUTION WIDTH-CV 15.1 % (11.5-14.5)
[2022-05-06 10:21] LABS: HEMATOCRIT 32.6 % (37.0-47.0); HEMOGLOBIN 10.4 g/dl (12.5-16.0); MEAN CORPUSCULAR HEMOGLOBIN 28 pg (27-31)
[2022-05-06 10:41] LABS: PROTHROMBIN TIME 46.5 SECONDS (9.7-12.8)
--- NOTE | 2022-05-06 10:41 | NUR ---
Initial visit; Patient states she is in awful pain and requested Clother In go get a nurse. Clother In did so and was told patient is confused and has been looked in on. Clother In was assured patient is being watched closely.
[2022-05-06 10:42] LABS: ALBUMIN 2.3 gm/dL (3.5-5.0); ALKALINE PHOSPHATASE 74 U/L (40-150); ANION GAP 8 mmol/L (7-16); AST,SGOT 10 U/L (5-34); BILIRUBIN,TOTAL 0.4 mg/dL (0.2-1.2); BLOOD UREA NITROGEN 11 mg/dL (7-19); CALCIUM 8.4 mg/dL (8.4-10.2); CARBON DIOXIDE 26 mmol/L (22-29); CHLORIDE 108 mmol/L (98-107); CREATININE, serum 0.58 mg/dL (0.57-1.11); GLUCOSE 75 mg/dL (70-99); SODIUM 142 mmol/L (136-145); TOTAL PROTEIN 5.6 gm/dL (6.2-8.1)
[2022-05-06 10:49] LABS: ALANINE AMINOTRANSFERASE < 6 U/L (0-55)
--- NOTE | 2022-05-06 11:42 | NUR ---
The patient has co-guardians and conservators. The patient's sister, Gretchen Ku (ph#[phone]), and her father, Aristides Aguilar (ph#[phone]), are the patient's co-guardians. ANICETO contacted the patient's sister, Gretchen, to discuss discharge plan. The patient resides at [facility] for long-term [facility]. Her PCP is Dr. Carolyn Conley and she receives her medications from [facility]. The patient's co-guardian and conservator court documents are in EMR. Gretchen states that the plan is for the patient to return back to [facility] upon discharge. ANICETO contacted and faxed updates to Pete at [facility]. *Discharge plan: [facility]*
[2022-05-06 16:00] VITALS: BP 100/54; PULSE 102; TEMP 98.3
[2022-05-06 19:42] VITALS: BP 93/56; PULSE 104; TEMP 98.5
[2022-05-06 21:53] LABS: INR 1.4 (0.8-3.0); PROTHROMBIN TIME 16.5 SECONDS (9.7-12.8)
[2022-05-07] VITALS (14 sets, daily range): BP systolic 81–131; BP diastolic 54–81; PULSE 88–118; TEMP 97.3–98.9
[2022-05-07 06:15] LABS: BASO % 0.2 % (0.0-2.0); EOS % 0.1 % (0.0-4.0); GRAN # 7.3 K/mm3 (1.4-6.5); GRAN % 80.7 % (42.2-75.2); HEMOGLOBIN 11.2 g/dl (12.5-16.0); LYMPH # 0.9 K/mm3 (1.2-3.4); LYMPH % 9.8 % (20.0-51.0); MEAN CELL VOLUME 89 fl (80.0-100.0); MEAN CORPUSCULAR HEMOGLOBIN 27 pg (27-31); MEAN CORPUSCULAR HGB CONC 30 g/dl (33.0-37.0); MONO # 0.8 K/mm3 (0.1-0.6); MONO % 8.8 % (1.7-9.3); PLATELET COUNT 115 K/mm3 (130-400); RED BLOOD COUNT 4.12 M/mm3 (4.10-5.30); REDCELL DISTRIBUTION WIDTH-CV 14.8 % (11.5-14.5)
[2022-05-07 06:20] LABS: HEMATOCRIT 36.8 % (37.0-47.0)
[2022-05-07 06:29] LABS: CALCIUM 8.4 mg/dL (8.4-10.2); CREATININE, serum 0.5 mg/dL (0.57-1.11)
[2022-05-07 06:39] LABS: INR 1.3 (0.8-3.0); PROTHROMBIN TIME 14.6 SECONDS (9.7-12.8)
--- NOTE | 2022-05-07 07:00 | NUR ---
Pt off the floor for surgery just as report was given, escorted sister to surgical waiting room
--- NOTE | 2022-05-07 12:06 | NUR ---
Pt tolerating ice water. Clear liquid tray ordered for her. No other needs, will continue to monitor
--- NOTE | 2022-05-07 15:19 | NUR ---
Pt continues to have complaints of pain and nausea. Dr Morales notified, new orders entered
--- NOTE | 2022-05-07 16:09 | NUR ---
ANICETO faxed updates to Pete at [facility].
--- NOTE | 2022-05-07 16:15 | NUR ---
Pt continues to be diaphoretic with complaints of feeling hot. Skin is cool to touch and pt does not have temperature. Not taking in much PO due to complaints of feeling nauseated. PRN phenergan given as she did not feel the zofran helped. Updated Dr Leon
--- NOTE | 2022-05-07 17:00 | NUR ---
Pt reports feeling better since getting phenergan and did get her a fan to use No other needs or complaints, report given
--- NOTE | 2022-05-08 04:13 | NUR ---
Pt has had an uneventful shift thus far. Pt is A&Ox3, however, she does shout out in bed and has brief moments when she appears to be talking to herself. Pt is a full body lift and requires a x2 assist. Pts dressings are CDI. Air mattress put under pt in order to aid in prevention of bedsores. All other needs met at this time, call light within reach.
[2022-05-08 04:39] VITALS: BP 91/50; PULSE 75; TEMP 97.7
[2022-05-08 06:57] LABS: CALCIUM 8.1 mg/dL (8.4-10.2); CREATININE, serum 0.49 mg/dL (0.57-1.11); POTASSIUM 4.4 mmol/L (3.5-4.5)
[2022-05-08 07:07] VITALS: BP 95/65; PULSE 70; TEMP 98.2
--- NOTE | 2022-05-08 10:05 | NUR ---
Pt doing okay today. She is having complaints of pain, PRN pain medications have been given. No complaints of nausea. She is slightly agitated, hoping the pain medication does help. Complete bed change done and bed bath given. Pt did make us aware this am that today is her shower day. Informed her we do not have a shower as they do a her home. Pt did hollar out some during the repositioning. Heel protector/booties on and socks on her hands. physicians have been in, new orders received. Sinha catheter has been discontinued, purwick applied.
--- NOTE | 2022-05-08 10:58 | NUR ---
The patient's sister, Gretchen, contacted this SW. Gretchen voiced some concerns she has had for the patient during her hospital stay here. ANICETO notified Frances, waxer floor, of the concerns. Gretchen confirms that plan is still for the patient to return back to [facility] upon discharge. SW to fax updates to [facility].
[2022-05-08 12:03] VITALS: BP 87/59; PULSE 76; TEMP 98
--- NOTE | 2022-05-08 15:01 | NUR ---
Pt continues to do well. Appears to be doing much better than yesterday. More calm, no complaints of nausea and pt is not clammy. Pain appears to be more under control. Sister has just arrived, PRN pain medication given
--- NOTE | 2022-05-08 16:51 | NUR ---
Pt has continued to do well today. She does not have much of an appetite, but is tolerating the clear liquids and the ensures. Pt is gluten free, options available are limited. Pt has been getting repositioned throughout the day and is on an air matress.
[2022-05-08 19:52] VITALS: BP 87/56; PULSE 69; TEMP 97.7
--- NOTE | 2022-05-08 22:03 | NUR ---
PATIENT IN BED, EYES CLOSED ON ENTRANCE, AWAKENS TO SPEECH. C/O PAIN. PRN DIANE GIVEN WITH HS MEDS. INT L FA PATENT AND FLUSHED. 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 PATIENT HAS PUREWICK IN PLACE BUT CALLS OUT REPEATED STATING SHE NEEDS CHANGED BECAUSES SHES PEED. REMINDED PATIENT THAT PUREWICK IS IN PLACE AND PATIENT IS DRY AT THIS TIME.
[2022-05-08 23:30] VITALS: BP 97/56; PULSE 79; TEMP 98
[2022-05-09 03:42] VITALS: BP 83/49; PULSE 72; TEMP 97.4
[2022-05-09 07:19] LABS: BASO % 0.2 % (0.0-2.0); EOS % 0.2 % (0.0-4.0); GRAN # 4.2 K/mm3 (1.4-6.5); GRAN % 68.5 % (42.2-75.2); LYMPH # 1.3 K/mm3 (1.2-3.4); LYMPH % 20.8 % (20.0-51.0); MEAN CELL VOLUME 89 fl (80.0-100.0); MEAN CORPUSCULAR HGB CONC 30 g/dl (33.0-37.0); MEAN PLATELET VOLUME 10.6 fl (7.4-10.4); MONO # 0.6 K/mm3 (0.1-0.6); MONO % 9.6 % (1.7-9.3); PLATELET COUNT 146 K/mm3 (130-400); RED BLOOD COUNT 2.72 M/mm3 (4.10-5.30); REDCELL DISTRIBUTION WIDTH-CV 14.6 % (11.5-14.5)
[2022-05-09 07:37] LABS: HEMATOCRIT 24.2 % (37.0-47.0); HEMOGLOBIN 7.3 g/dl (12.5-16.0); MEAN CORPUSCULAR HEMOGLOBIN 27 pg (27-31)
[2022-05-09 07:51] LABS: CALCIUM 8.1 mg/dL (8.4-10.2); CREATININE, serum 0.52 mg/dL (0.57-1.11); POTASSIUM 4.2 mmol/L (3.5-4.5)
--- NOTE | 2022-05-09 08:00 | NUR ---
PATIENT IS ORIENTED TO PERSON BUT VERY FORGETFUL/CONFUSED. PATIENT ASKS THE SAME QUESTIONS OVER AND OVER. STAFF FREQUENTLY NEEDS TO REPEAT NAMES AND INFO MULTIPLE TIMES, OFTEN IN THE SAME INTERATION. NOTED SOFT B/P IN THE 90'S SYSTOLIC, ALL OTHER VSS. POST OP HGB OF 7.3. IV FLUIDS INFUSING VIA PUMP INTO LEFT FORARM. PATIENT HAS EXTENSIVE HX INCLUDING STROKE X2 AND IS A QUAD/PARALIZED/LOLA LIFT. AIR MATRESS INPLACE. SCD'S CURRENTLY OFF. Money MoverWICK INPLACE. BREAKFAST TRAY ORDERED, FEEDER. AM MEDS GIVEN. HEAD TO TOE ASSESSMENT COMPLETE. CALL LIGHT IN REACH.
[2022-05-09 08:31] VITALS: BP 91/52; PULSE 63; TEMP 97.8
[2022-05-09 10:02] LABS: HEMATOCRIT 25.8 % (37.0-47.0)
--- NOTE | 2022-05-09 10:20 | NUR ---
ROLES AT BEDSIDE MAKING ROUNDS.
[2022-05-09 11:50] VITALS: BP 101/61; PULSE 74; TEMP 97.6
[2022-05-09 12:36] LABS: HEMATOCRIT 25.4 % (37.0-47.0)
--- NOTE | 2022-05-09 12:40 | NUR ---
REPEAT HGB IS 8.0 AND WAS REPORTED TO AND . NO NEW ORDERS. INSTRUCTED WE WILL MONITOR TRENDING H&H'S AT THIS TIME. REPEAT H&H ORDERED IN AM. VSS. PATIENT RESTING WITHOUT ISSUE. CALL LIGHT IN REACH.
[2022-05-09 16:37] VITALS: BP 80/42; BP 90/66; PULSE 82; TEMP 97.9
[2022-05-09 18:57] VITALS: BP 95/49; PULSE 69; TEMP 97.7
[2022-05-09 23:40] VITALS: BP 89/51; PULSE 78; TEMP 97.7
--- NOTE | 2022-05-09 23:52 | NUR ---
PATIENT ALERT BUT CONFUSED AND FORGETFUL. HAS HAD SEVERAL EPISODES WHERE SHE BECAME ANGRY AND VERBALLY AGRESSIVE TOWARDS STAFF. C/O PELVIC CRAMPING AND PRN DIANE GIVEN. PUREWICK IN PLACE. HS MEDS PER EMAR. FAMILY WAS AT BEDSIDE AND BROUGHT DINNER FOR PATIENT. PATIENT FEELS LIKE SHE NEEDS TO HAVE BM BUT HAS ONLY PASSED GAS SO FAR. COMPLETE LINEN AND GOWN CHANGE COMPLETED.
--- NOTE | 2022-05-10 02:56 | NUR ---
PATIENT HAS CALLED OUT EVERY 5 MINUTES FOR THE LAST HOUR. NEEDS REPEATED REMINDING. C/O ITCHING, PO BENADRYL WAS GIVEN BUT PATIENT CONTINUES TO CALL OUT. DISCUSSED WITH JOSE BRAND AND ADDITIONAL BENADRYL ORDER GIVEN. PATIENT REMAINS AGITATED AND CONTINUES TO CALL OUT AND PULL/SCRATCH AT THINGS TAKING HER OXYGEN OFF REPEATEDLY AND PULLED OUT HER IV. DISCUSSED WITH JOSE BRAND, ORDER TO LEAVE IV OUT FOR NOW AND READRESS TOMORROW. CONTINUES TO FORGET SHE HAS PUREWICK IN PLACE AND CALLS OUT NEEDING TO URINATE, ADDITIONAL REMINDERS THAT SHE HAS PUREWICK AND EDUCATION DONE. PATIENT ALSO REQUESTING GLUTEN FREE SNACK AT THIS TIME, DISCUSSED OPTIONS AND PATIENT SETTLED ON PERSONAL SNACK OF SOUR PATCH KIDS.
[2022-05-10 03:38] VITALS: BP 112/60; PULSE 73; TEMP 98.3
--- NOTE | 2022-05-10 06:45 | NUR ---
Report received, assumed care for day shift.
[2022-05-10 06:55] LABS: BASO % 0.7 % (0.0-2.0); EOS # 0.1 K/mm3 (0.0-0.7); EOS % 1.1 % (0.0-4.0); GRAN # 3.2 K/mm3 (1.4-6.5); GRAN % 58.2 % (42.2-75.2); LYMPH # 1.6 K/mm3 (1.2-3.4); LYMPH % 29.2 % (20.0-51.0); MEAN CELL VOLUME 90 fl (80.0-100.0); MEAN CORPUSCULAR HGB CONC 30 g/dl (33.0-37.0); MEAN PLATELET VOLUME 10.1 fl (7.4-10.4); MONO # 0.5 K/mm3 (0.1-0.6); MONO % 9.5 % (1.7-9.3); PLATELET COUNT 183 K/mm3 (130-400); RED BLOOD COUNT 3.14 M/mm3 (4.10-5.30)
[2022-05-10 06:56] LABS: HEMATOCRIT 28.4 % (37.0-47.0); HEMOGLOBIN 8.4 g/dl (12.5-16.0); MEAN CORPUSCULAR HEMOGLOBIN 27 pg (27-31)
[2022-05-10 07:11] LABS: CALCIUM 8.1 mg/dL (8.4-10.2); CREATININE, serum 0.47 mg/dL (0.57-1.11); POTASSIUM 4.1 mmol/L (3.5-4.5)
--- NOTE | 2022-05-10 07:30 | NUR ---
Assessment complete. Alert but not oriented. VS remain stable. Continues to yell out at staff even with frequent re-orienting. Low transverse incison-edges well approximated-no drainage noted-open to air. Purewick in place with clear yellow urine. SCDs bilat. No IV access as of last NOC. Will discuss with doc today for alternative. Repositioned in bed with pillow support. Denies current questions/concerns. Call light in reach. Will monitor.
[2022-05-10 07:57] VITALS: BP 101/66; PULSE 79; TEMP 97.9
--- NOTE | 2022-05-10 10:00 | NUR ---
20g IV placed to left AC x2 attempts by this nurse. Flushes well with good blood return.
--- NOTE | 2022-05-10 10:25 | NUR ---
Patient c/o abdominal pain as well as nausea. States "My stomach hurts. I want to throw up." Zofran/oxycodone given per dr order. Will monitor.
[2022-05-10 11:24] LABS: PARTIAL THROMBOPLASTIN TIME 34.3 SECONDS (26.0-37.0)
--- NOTE | 2022-05-10 11:30 | NUR ---
Heparin gtt initiated at 1600 units/hour to left AC [address] order.
[2022-05-10 12:00] VITALS: BP 99/75; PULSE 98; TEMP 99
--- NOTE | 2022-05-10 15:06 | NUR ---
Called with c/o pain to abdomen/neck. Rating pain 7/10 on pain scale-described as cramping. Oxycodone given per dr adamson.
[2022-05-10 15:27] VITALS: BP 111/62; PULSE 98; TEMP 98.2
--- NOTE | 2022-05-10 17:26 | NUR ---
Patient had an uneventful day. Heparin gtt continues to infuse at 1600 units per hour. Received several doses of pain medications with good results. Tolerating diet. Denies current needs. Call light in reach. Will monitor.
--- NOTE | 2022-05-10 18:20 | NUR ---
HepXa 0.90. Heparin gtt stopped at this time. WIll restart in one hour. Rate will be decreased to 1400 units/hour at that time. Will pass on to oncoming nurse in bedside report.
[2022-05-10 19:46] VITALS: BP 102/25; PULSE 92; TEMP 98.3
--- NOTE | 2022-05-10 21:26 | NUR ---
ASSESSMENT COMPLETE. PT LYING IN BED WATCHING TV. ORIENTED TO SELF ONLY. PERIWICK IN PLACE AND DRAINING URINE. HEPARIN INFUSING TO LEFT AC. HEEL GUARDS IN PLACE. CALL LIGHT IN REACH. NO FURTHER NEEDS AT THIS TIME.
[2022-05-10 23:51] VITALS: BP 94/42; PULSE 88; TEMP 99
[2022-05-11 01:30] LABS: BASO % 0.3 % (0.0-2.0); EOS # 0.1 K/mm3 (0.0-0.7); EOS % 0.9 % (0.0-4.0); GRAN # 3.9 K/mm3 (1.4-6.5); LYMPH # 1.3 K/mm3 (1.2-3.4); LYMPH % 22.6 % (20.0-51.0); MEAN CELL VOLUME 88 fl (80.0-100.0); MEAN CORPUSCULAR HGB CONC 31 g/dl (33.0-37.0); MEAN PLATELET VOLUME 10.1 fl (7.4-10.4); MONO # 0.5 K/mm3 (0.1-0.6); MONO % 8.8 % (1.7-9.3); PLATELET COUNT 177 K/mm3 (130-400)
[2022-05-11 01:31] LABS: HEMATOCRIT 25.6 % (37.0-47.0); HEMOGLOBIN 7.8 g/dl (12.5-16.0); MEAN CORPUSCULAR HEMOGLOBIN 27 pg (27-31)
[2022-05-11 01:39] LABS: INR 1.3 (0.8-3.0)
[2022-05-11 01:44] LABS: CALCIUM 7.8 mg/dL (8.4-10.2); CREATININE, serum 0.48 mg/dL (0.57-1.11)
--- NOTE | 2022-05-11 02:21 | NUR ---
HEPARIN LAB CAME BACK AT 0.42 WHICH IS WITHIN GOAL. NO CHANGE MADE TO HEPARIN DRIP AT 14.
[2022-05-11 05:00] VITALS: BP 91/42; PULSE 80; TEMP 99.6
--- NOTE | 2022-05-11 07:30 | NUR ---
HEP-XA OF 0.47, NO CHANGE PER PROTOCOL.
[2022-05-11 08:00] VITALS: BP 104/50; PULSE 72; TEMP 97.4
--- NOTE | 2022-05-11 10:53 | NUR ---
The hospitalist notified ANICETO that the patient may be able to discharge tomorrow or Wednesday. ANICETO contacted and updated the patient's sister, Gretchen. Gretchen is in agreement to the plan. Gretchen informed ANICETO that the patient's glasses are missing and the last time she saw them was . She states that she called down to the kitchen, for them to check if the glasses were left on the tray. The kitchen staff did not find the glasses. The surgical floor and supervisor advertising dispatch clerks have been notified. Gretchen states that she has already gone ahead and ordered the patient a new pair of glasses. ANICETO notified Pete at [facility] of tentative discharge and faxed them updates. *Discharge plan: [facility]*
--- NOTE | 2022-05-11 11:15 | NUR ---
ROUNDING AND GIVEN PATIENT STATUS UPDATE. PLAN IS TO DISCHARGE BACK TO [facility] TOMORROW.
[2022-05-11 11:17] VITALS: BP 93/58; PULSE 68; TEMP 97.4
[2022-05-11 15:32] VITALS: BP 116/98; PULSE 80; TEMP 97.6
[2022-05-11 15:41] LABS: HEMOGLOBIN 8.2 g/dl (12.5-16.0)
[2022-05-11 19:50] VITALS: BP 77/49; PULSE 89; TEMP 97.7
[2022-05-11 22:00] VITALS: BP 95/45
--- NOTE | 2022-05-11 23:12 | NUR ---
PATIENT ALERT BUT CONFUSED. HS MEDS PER EMAR. STAFF ASSISTED TO CHANGE PT PUREWICK AND DO PERICARE AND PATIENT WAS VERY AGITATED AND VERBALLY AGRESSIVE THROUGHOUT THIS. LOW TRANSVERSE INCISION CDI AND OPEN TO AIR. HEP GTT INFUSING AT 1400 UNITS/HR, HEP XA 0.44 THERAPUETIC, NO CHANGE AT THIS TIME. C/O ABD PAIN, PRN MOTRIN GIVEN.
[2022-05-12 00:47] VITALS: BP 81/62; PULSE 90; TEMP 99.1
[2022-05-12 04:23] VITALS: BP 81/51; PULSE 68; TEMP 98.6
--- NOTE | 2022-05-12 06:45 | NUR ---
Report received, assumed care for day shift.
[2022-05-12 07:54] LABS: MEAN CELL VOLUME 90 fl (80.0-100.0); MEAN CORPUSCULAR HGB CONC 30 g/dl (33.0-37.0); MEAN PLATELET VOLUME 10.1 fl (7.4-10.4); PLATELET COUNT 191 K/mm3 (130-400); REDCELL DISTRIBUTION WIDTH-CV 15.1 % (11.5-14.5)
[2022-05-12 07:57] LABS: HEMATOCRIT 24.2 % (37.0-47.0); HEMOGLOBIN 7.3 g/dl (12.5-16.0); MEAN CORPUSCULAR HEMOGLOBIN 27 pg (27-31)
[2022-05-12 08:02] VITALS: BP 82/58; PULSE 89; TEMP 98.6
[2022-05-12 08:10] VITALS: BP 83/58
--- NOTE | 2022-05-12 08:10 | NUR ---
Dr Patel notified of low blood pressure-80/50s taken manually by this nurse. New orders received and initiated.
[2022-05-12 08:17] LABS: CREATININE, serum 0.48 mg/dL (0.57-1.11); POTASSIUM 3.6 mmol/L (3.5-4.5)
--- NOTE | 2022-05-12 08:30 | NUR ---
Assessment complete. Alert but not oriented. Very agitated this morning yelling at staff and refusing cares/food. Denies nausea/pain/shortness of breath. Fluid bolus infusing currently due to hypotension. Purewick in place-clear yellow urine noted. Heparin gtt infusing at 1400units/hour to left AC 20g-infusing without difficulty. HepXa is therapeutic. Plan of care discussed for this shift to include meds/repositioning/calling for questions or concerns. Will monitor.
[2022-05-12 08:52] LABS: INR 1.5 (0.8-3.0); PROTHROMBIN TIME 17.1 SECONDS (9.7-12.8)
[2022-05-12 10:29] LABS: BAND 3 % (0-10); EOSINOPHIL 2 % (0-4); LYMPHOCYTE 25 % (20.0-51.0); METAMYELOCYTE 2 % (0-0); NEUTROPHILS 65 % (42.0-75.2); PLATELET ESTIMATE NORMAL (NORMAL)
[2022-05-12 10:51] VITALS: BP 95/63
[2022-05-12] MEDS ORDERED: LOVENOX 100100 MG/ML SQ (11:13)
--- NOTE | 2022-05-12 11:37 | NUR ---
The patient is to discharge today, 05/12, back to [facility] for a skilled stay. Transportation was scheduled at 1500, via [facility]. ANICETO informed the patient's RN and her sister, Gretchen, of the time. ANICETO also read the IM form outloud to Gretchen over the phone. Gretchen verbalized understanding and of agreement to discharge today. She gave ANICETO approval to sign the form on her behalf. ANICETO updated Gretchen on how the patient's eyeglasses have not been found yet. ANICETO provided Gretchen with Mireya Mcmillan, Risk Management's, phone number. No additional needs at this time.
--- NOTE | 2022-05-12 11:41 | NUR ---
Stormy: Holiness Situation: automotive machinist went to room on rounds Background: PT was content and resting Assessment: PT appreciated visit Recommendation: Microfilm Clerk will follow up as needed
--- NOTE | 2022-05-12 14:06 | NUR ---
20g IV to left AC DCd at this time cath intact. Tolerated well.
--- NOTE | 2022-05-12 14:29 | NUR ---
[facility] here to pickling grader patient. Belongings sent with staff. Pushed off floor in wheelchair by [facility] staff in stable condition.
--- NOTE | 2022-05-12 14:35 | NUR ---
Attempt made to call report to [facility]. Message left.
--- NOTE | 2022-05-12 14:45 | NUR ---
Attempt made to call report to [facility].
--- NOTE | 2022-05-12 16:00 | NUR ---
Report given to SIMBA Kapoor.
== END 2022-05-12 14:35 | DRG 742 ==
LOC: COL.ER 16:53 → SURG 19:56
PROVIDERS: Internal Medicine; Nurse Practitioner Primary Care; Obstetrics & Gynecology; Physician Assistant; Student in an Organized Health Care Education/Training Program; ADMIT Obstetrics & Gynecology
PROC: 0GT20ZZ Resection of Left Adrenal Gland, Open Approach (ICD-10-PCS; 2022-05-07)
PROC: 0UT70ZZ Resection of Bilateral Fallopian Tubes, Open Approach (ICD-10-PCS; principal; 2022-05-07 07:30)
PROC: 0UT20ZZ Resection of Bilateral Ovaries, Open Approach (ICD-10-PCS; 2022-05-07 07:30)
DX: N83.202 Unspecified ovarian cyst, left side (principal); G82.50 Quadriplegia, unspecified; D68.61 Antiphospholipid syndrome; N39.0 Urinary tract infection, site not specified; N83.522 Torsion of left fallopian tube; K90.0 Celiac disease; I69.228 Other speech and language deficits following other nontraumatic intracranial hemorrhage; I69.91 Cognitive deficits following unspecified cerebrovascular disease; Z20.822 Contact with and (suspected) exposure to COVID-19; I34.0 Nonrheumatic mitral (valve) insufficiency; G40.909 Epilepsy, unspecified, not intractable, without status epilepticus; K21.9 Gastro-esophageal reflux disease without esophagitis; D64.9 Anemia, unspecified; L89.90 Pressure ulcer of unspecified site, unspecified stage; I73.9 Peripheral vascular disease, unspecified; M79.7 Fibromyalgia; F32.A Depression, unspecified; F41.9 Anxiety disorder, unspecified; G43.909 Migraine, unspecified, not intractable, without status migrainosus; R32 Unspecified urinary incontinence; E78.5 Hyperlipidemia, unspecified; Z79.82 Long term (current) use of aspirin; Z79.01 Long term (current) use of anticoagulants; Z90.710 Acquired absence of both cervix and uterus; Z87.891 Personal history of nicotine dependence; Z88.1 Allergy status to other antibiotic agents
CPT/HCPCS: 99223; 99232-AI; 99233-AI; A4314; A9284; G0378; J0690; J0696; J1100; J1170; J1644; J1885; J2270; J2405; J2550; J2704; J3010; J3430; J7030; J7120; Q9967

== ENCOUNTER → 2022-05-20 | Outpatient (CLI) | payer MEDICARE, MEDICAID ==
[2022-05-20 16:36] LABS: CALCIUM 8.4 mg/dL (8.4-10.2); CREATININE, serum 0.61 mg/dL (0.57-1.11); POTASSIUM 4.9 mmol/L (3.5-4.5)
[2022-05-20 16:39] LABS: BASO % 0.9 % (0.0-2.0); EOS % 0.6 % (0.0-4.0); GRAN # 2.9 K/mm3 (1.4-6.5); GRAN % 61.9 % (42.2-75.2); HEMATOCRIT 31.1 % (37.0-47.0); HEMOGLOBIN 9.2 g/dl (12.5-16.0); LYMPH # 1.3 K/mm3 (1.2-3.4); LYMPH % 27.3 % (20.0-51.0); MEAN CELL VOLUME 90 fl (80.0-100.0); MEAN CORPUSCULAR HEMOGLOBIN 27 pg (27-31); MEAN CORPUSCULAR HGB CONC 30 g/dl (33.0-37.0); MEAN PLATELET VOLUME 10.3 fl (7.4-10.4); MONO # 0.4 K/mm3 (0.1-0.6); MONO % 8.7 % (1.7-9.3); PLATELET COUNT 282 K/mm3 (130-400); RED BLOOD COUNT 3.45 M/mm3 (4.10-5.30); REDCELL DISTRIBUTION WIDTH-CV 15.9 % (11.5-14.5)
== END ==
LOC: ZLAB.STJ 16:19
PROVIDERS: Internal Medicine
DX: I10 Essential (primary) hypertension (principal); E55.9 Vitamin D deficiency, unspecified

== ENCOUNTER → 2022-08-17 | Outpatient (CLI) | payer MEDICARE, MEDICAID ==
[2022-08-17 18:04] LABS: COLLECTION METHOD CATHETER
[2022-08-17 18:14] LABS: BASO % 0.7 % (0.0-2.0); EOS % 0.5 % (0.0-4.0); GRAN # 3.5 K/mm3 (1.4-6.5); GRAN % 58.9 % (42.2-75.2); HEMATOCRIT 44.5 % (37.0-47.0); HEMOGLOBIN 13.6 g/dl (12.5-16.0); LYMPH % 33.6 % (20.0-51.0); MEAN CELL VOLUME 83 fl (80.0-100.0); MEAN CORPUSCULAR HEMOGLOBIN 26 pg (27-31); MEAN CORPUSCULAR HGB CONC 31 g/dl (33.0-37.0); MEAN PLATELET VOLUME 10.5 fl (7.4-10.4); MONO # 0.4 K/mm3 (0.1-0.6); MONO % 6.1 % (1.7-9.3); PLATELET COUNT 172 K/mm3 (130-400); RED BLOOD COUNT 5.34 M/mm3 (4.10-5.30)
[2022-08-17 18:19] LABS: MUCOUS Present (NOT PRESENT); SQUAMOUS EPITHELIAL 0-2 /hpf (0-10); URINE BACTERIA Rare /hpf (NONE SEEN)
[2022-08-17 18:20] LABS: URINE APPEARANCE Cloudy (CLEAR/HAZY); URINE BLOOD TRACE-INTACT (NEGATIVE); URINE COLOR Yellow (YELLOW); URINE GLUCOSE Negative (NEGATIVE); URINE KETONE Negative (NEGATIVE); URINE NITRATE Negative (NEGATIVE); URINE PROTEIN(semi-quant) TRACE (NEGATIVE); URINE UROBILINOGEN 0.2 E.U/dL (0.2-1.0)
[2022-08-17 18:22] LABS: ALBUMIN 3.2 gm/dL (3.5-5.0); BILIRUBIN,TOTAL 0.2 mg/dL (0.2-1.2); CALCIUM 8.9 mg/dL (8.4-10.2); CREATININE, serum 0.67 mg/dL (0.57-1.11); POTASSIUM 4.5 mmol/L (3.5-4.5); TOTAL PROTEIN 6.5 gm/dL (6.2-8.1)
== END ==
LOC: ZLAB.STJ 17:57
PROVIDERS: Internal Medicine
DX: M81.0 Age-related osteoporosis without current pathological fracture (principal); I10 Essential (primary) hypertension; Z79.899 Other long term (current) drug therapy; R82.90 Unspecified abnormal findings in urine

== ENCOUNTER 2022-12-01 04:59 | Emergency (ER) | payer MEDICARE, MEDICAID ==
[~2022-12-01] VITALS: Ht 172.7 cm; Wt 79.5 kg
[2022-12-01 05:11] LABS: BASO % 0.8 % (0.0-2.0); EOS # 0.1 K/mm3 (0.0-0.7); EOS % 1.1 % (0.0-4.0); GRAN # 2.4 K/mm3 (1.4-6.5); GRAN % 50.6 % (42.2-75.2); HEMATOCRIT 47.4 % (37.0-47.0); HEMOGLOBIN 14.4 g/dl (12.5-16.0); LYMPH # 1.9 K/mm3 (1.2-3.4); LYMPH % 40.3 % (20.0-51.0); MEAN CELL VOLUME 89 fl (80.0-100.0); MEAN CORPUSCULAR HEMOGLOBIN 27 pg (27-31); MEAN CORPUSCULAR HGB CONC 30 g/dl (33.0-37.0); MEAN PLATELET VOLUME 9.9 fl (7.4-10.4); MONO # 0.3 K/mm3 (0.1-0.6); PLATELET COUNT 135 K/mm3 (130-400); RED BLOOD COUNT 5.34 M/mm3 (4.10-5.30); REDCELL DISTRIBUTION WIDTH-CV 13.9 % (11.5-14.5)
[2022-12-01 05:31] LABS: ALANINE AMINOTRANSFERASE 19 U/L (0-55); ALBUMIN 3.2 gm/dL (3.5-5.0); ALKALINE PHOSPHATASE 84 U/L (40-150); ANION GAP 8 mmol/L (7-16); AST,SGOT 14 U/L (5-34); BILIRUBIN,TOTAL 0.2 mg/dL (0.2-1.2); BLOOD UREA NITROGEN 11 mg/dL (7-19); CALCIUM 9.1 mg/dL (8.4-10.2); CARBON DIOXIDE 29 mmol/L (22-29); CHLORIDE 109 mmol/L (98-107); CREATININE, serum 0.68 mg/dL (0.57-1.11); GLUCOSE 109 mg/dL (70-99); POTASSIUM 4.4 mmol/L (3.5-4.5); SODIUM 146 mmol/L (136-145); TOTAL PROTEIN 6.4 gm/dL (6.2-8.1)
[2022-12-01 05:37] LABS: TROPONIN-I < 0.010 ng/mL (0.00-0.033)
[2022-12-01 06:41] LABS: COLLECTION METHOD CATHETER
[2022-12-01 06:51] LABS: PH 7.5 (5.0-8.5); URINE APPEARANCE Clear (CLEAR/HAZY); URINE COLOR Straw (YELLOW); URINE GLUCOSE Negative (NEGATIVE); URINE KETONE Negative (NEGATIVE); URINE PROTEIN(semi-quant) Negative (NEGATIVE)
[2022-12-01 06:52] LABS: URINE BLOOD 2+ (NEGATIVE); URINE NITRATE Positive (NEGATIVE); URINE UROBILINOGEN 0.2 E.U/dL (0.2-1.0)
[2022-12-01 06:54] LABS: SQUAMOUS EPITHELIAL 0-2 /hpf (0-10); URINE BACTERIA Rare /hpf (NONE SEEN)
[2022-12-01] MEDS ORDERED: CEPHALEXIN500 M1 PO (06:55)
[2022-12-01 07:42] VITALS: BP 98/68; PULSE 67; TEMP 97.8
== END 2022-12-01 07:46 | disposition home or self-care (01) ==
LOC: COL.ER 04:59
PROVIDERS: Emergency Medicine
DX: I44.0 Atrioventricular block, first degree (principal); N39.0 Urinary tract infection, site not specified; Z87.891 Personal history of nicotine dependence; Z20.822 Contact with and (suspected) exposure to COVID-19; Z88.1 Allergy status to other antibiotic agents
CPT/HCPCS: J7030

== ENCOUNTER 2023-12-11 | Inpatient (IN) | payer MEDICARE, MEDICAID ==
[2023-12-11] VITALS (469 sets, daily range): BP systolic 88–121; BP diastolic 57–71; PULSE 55–63; TEMP 97.4–99; O2SAT 70–100
[~2023-12-11] VITALS: Ht 172.7 cm; Wt 96.2 kg
[2023-12-11 00:18] LABS: ARTERIAL BLD GAS O2 SATURATION 86.5 % (92-100); ARTERIAL BLD GAS TCO2 CT 31.1; ARTERIAL BLOOD GAS BASE EXCESS 2.7 (-2-2); ARTERIAL BLOOD GAS HCO3 29.4 meq/L (22-26); ARTERIAL BLOOD GAS PCO2 54.5 mmHg (35-45); ARTERIAL BLOOD GAS pH 7.35 (7.35-7.45)
[2023-12-11 00:25] LABS: BASO % 0.7 % (0.0-2.0); EOS % 0.9 % (0.0-4.0); GRAN # 2.4 K/mm3 (1.4-6.5); GRAN % 56.8 % (42.2-75.2); HEMATOCRIT 39.5 % (37.0-47.0); HEMOGLOBIN 12.2 g/dl (12.5-16.0); LYMPH # 1.4 K/mm3 (1.2-3.4); LYMPH % 33.6 % (20.0-51.0); MEAN CELL VOLUME 88 fl (80.0-100.0); MEAN CORPUSCULAR HEMOGLOBIN 27 pg (27-31); MEAN CORPUSCULAR HGB CONC 31 g/dl (33.0-37.0); MEAN PLATELET VOLUME 9.2 fl (7.4-10.4); MONO # 0.3 K/mm3 (0.1-0.6); MONO % 7.8 % (1.7-9.3); PLATELET COUNT 147 K/mm3 (130-400); RED BLOOD COUNT 4.49 M/mm3 (4.10-5.30); REDCELL DISTRIBUTION WIDTH-CV 14.2 % (11.5-14.5)
[2023-12-11] MEDS ORDERED: NS 1,000 ML IV ONE (00:30)
[2023-12-11 00:31] LABS: INR 3.2 (0.8-3.0); PROTHROMBIN TIME 33.5 SECONDS (9.7-12.8)
[2023-12-11 00:33] LABS: PARTIAL THROMBOPLASTIN TIME 56.4 SECONDS (26.0-37.0)
[2023-12-11 00:39] LABS: ALANINE AMINOTRANSFERASE 16 U/L (0-55); ALBUMIN 2.6 gm/dL (3.5-5.0); ALKALINE PHOSPHATASE 90 U/L (40-150); ANION GAP 4 mmol/L (7-16); AST,SGOT 16 U/L (5-34); BILIRUBIN,TOTAL 0.2 mg/dL (0.2-1.2); BLOOD UREA NITROGEN 11 mg/dL (7-19); CALCIUM 8.6 mg/dL (8.4-10.2); CARBON DIOXIDE 27 mmol/L (22-29); CHLORIDE 111 mmol/L (98-107); CREATININE, serum 0.53 mg/dL (0.57-1.11); GLUCOSE 89 mg/dL (70-99); POTASSIUM 4.2 mmol/L (3.5-4.5); SODIUM 142 mmol/L (136-145); TOTAL PROTEIN 5.7 gm/dL (6.2-8.1)
[2023-12-11 00:48] LABS: TROPONIN-I < 0.010 ng/mL (0.00-0.033)
[2023-12-11 01:02] LABS: D-DIMER < 200.00 ng/mLDDu (200-230)
[2023-12-11] MEDS ORDERED: Albumin (Human) 100 ML IV ONE (01:30)
[2023-12-11] MEDS ORDERED: LR 1,000 ML IV SCH (02:00)
[2023-12-11] MEDS ORDERED: Ondansetron 4 MG/2 ML VIAL IV PRN (02:00)
[2023-12-11] MEDS ORDERED: Acetaminophen 325 MG TAB PO PRN (02:00)
[2023-12-11] MEDS ORDERED: D3-5050000 IU PO (02:11)
[2023-12-11] MEDS ORDERED: PAXLOVID CO-PA1 EACH PO (02:12)
[2023-12-11] MEDS ORDERED: REMERON 15M15 MG/TA1 PO (02:12)
[2023-12-11] MEDS ORDERED: FENTANYL 12MCG TD (02:13)
[2023-12-11] MEDS ORDERED: NARCAN .4MG0.4 MG/ML IM (02:14)
[2023-12-11] MEDS ORDERED: FERRO-TIME325 MG PO (02:16)
[2023-12-11] MEDS ORDERED: [UNRECOGNIZED DRUG - OTHER] PO ×2 (02:18→06:47)
[2023-12-11] MEDS ORDERED: NATURAL MAGNES200 MG PO (02:20)
[2023-12-11] MEDS ORDERED: ATHLETE'S FOOT1% TP (02:21)
[2023-12-11] MEDS ORDERED: MIRVASO30 GM TP (02:22)
[2023-12-11] MEDS ORDERED: PROTONIX 40MG T40 MG PO (02:23)
[2023-12-11] MEDS ORDERED: FOSAMAX 70MG TA70 MG PO (02:24)
[2023-12-11] MEDS ORDERED: SUPPORT 240 ML240 ML (02:25)
[2023-12-11] MEDS ORDERED: LIDODERM 5% PATC1 EA TP (02:27)
[2023-12-11] MEDS ORDERED: TUMS500 MG PO (02:27)
[2023-12-11] MEDS ORDERED: REMERON45 MG PO (02:29)
[2023-12-11] MEDS ORDERED: ATARAX 25MG25 MG/TAB PO (02:30)
[2023-12-11] MEDS ORDERED: FENTANYL 25 MCG TD (02:31)
[2023-12-11] MEDS ORDERED: VOLTAREN GEL 1%1 TU TP (02:31)
[2023-12-11] MEDS ORDERED: LIORESAL20 MG PO (02:31)
[2023-12-11] MEDS ORDERED: BELSOMRA10 MG PO (02:32)
[2023-12-11] MEDS ORDERED: hydrOXYzine HCl 25 MG TAB PO PRN (03:00)
[2023-12-11] MEDS ORDERED: Melatonin 3 MG TAB PO PRN (03:00)
[2023-12-11 03:14] LABS: COLLECTION METHOD CATHETER
[2023-12-11] MEDS ORDERED: Mag/Al Hydrox/Simeth Susp 30 ML CUP PO PRN (03:15)
[2023-12-11] MEDS ORDERED: LR 1,000 ML IV ONE ×2 (03:15→06:15)
[2023-12-11 03:20] LABS: URINE APPEARANCE Clear (CLEAR/HAZY); URINE BLOOD Negative (NEGATIVE); URINE COLOR Yellow (YELLOW); URINE GLUCOSE Negative (NEGATIVE); URINE KETONE Negative (NEGATIVE); URINE NITRATE Negative (NEGATIVE); URINE PROTEIN(semi-quant) Negative (NEGATIVE); URINE UROBILINOGEN 0.2 E.U/dL (0.2-1.0)
[2023-12-11 03:35] LABS: URINE RBC None Seen /hpf (0-2)
[2023-12-11 03:36] LABS: MUCOUS Present (NOT PRESENT); URINE BACTERIA Moderate /hpf (NONE SEEN)
--- NOTE | 2023-12-11 05:31 | NUR ---
Report received from Isha at 0335. Pt arrived on the unit at 0340. Pt on 2L O2 via NC and sating in the 90's. Pt has complained of some SOB still. Pt on fluids and 1L bolus of LR was given per hospitalist after pt's arrival on the unit. Pt's vitals have been stable and pt's BP went up with the LR bolus. Pt was restless and anxious and prn anxiety med was given. Pt is now currently resting in bed with call light within reach and bed alarms on. The only thing that came over with the pt is the sling for the lift from the [facility] and the sling on the pt's right arm. Pt did not have her glasses or dentures with her. This nurse was not able to verifiy the pt's home med rec since there is no paper copy seen and pt does not know all her meds. Will pass on to day shift nurse.
[2023-12-11] MEDS ORDERED: CYMBALTA 60MG60 MG PO (06:28)
--- NOTE | 2023-12-11 07:00 | NUR ---
Report received from SIMBA Burciaga; patient currently resting in bed with eyes closed; LR is running through her peripheral line and patient is on 2 L NC and satting 99-100%; there are no other lines or tubes in place at this time. Patient is stable and vital signs are within normal limits.
[2023-12-11] MEDS ORDERED: Gabapentin 300 MG CAP PO SCH (09:00)
[2023-12-11] MEDS ORDERED: ARIPiprazole 5 MG TAB PO SCH (09:00)
[2023-12-11] MEDS ORDERED: dexAMETHasone 4 MG TAB PO SCH (09:00)
[2023-12-11] MEDS ORDERED: levETIRAcetam 500 MG TAB PO SCH (09:00)
[2023-12-11] MEDS ORDERED: Sennosides/Docusate 8.6-50 MG TAB PO SCH ×2 (09:00)
[2023-12-11] MEDS ORDERED: cycloSPORINE Ophth Emulsion **** subs to Carboxymethylcellulose 1 % Ophth Gel OP SCH (09:00)
[2023-12-11] MEDS ORDERED: Carboxymethylcellulose PF Ophth 0.4 ML DROPPERETTE OP SCH (09:00)
[2023-12-11] MEDS ORDERED: Polyethylene Glycol 3350 17 GM PDS PO SCH (09:00)
[2023-12-11] MEDS ORDERED: Baclofen 10 MG TAB PO SCH (09:00)
[2023-12-11] MEDS ORDERED: Hydroxychloroquine 200 MG TAB PO SCH (09:00)
--- NOTE | 2023-12-11 10:37 | NUR ---
Data: Attempted Public Information Officer visit during Public Information Officer rounds. 2 RN were with Patient. Assessment: Unavailable for Public Information Officer visit at this time. Plan of Care: Chaplains will remain available as needed/requested while Patient is admitted to this hospital.
--- NOTE | 2023-12-11 13:00 | NUR ---
Reported off to Lisa Ponce RN; patient taken upstairs to medical floor, room 302. Patient was taken up on medical floor bed by tech. IVF were running through her peripheral IV; patient on 2 L O2 via NC. Vital signs within normal limits and patient stable. Patient's DPOA, her sister Gretchen, was notified of patient's transfer to new room. Gretchen was going to call [facility] [employer] to see if someone could bring her dentures to the hospital. Patient had no belongings other than a sling for a lift; it was sent upstairs with patient.
--- NOTE | 2023-12-11 14:33 | NUR ---
Patient transferred from ICU around 1300. Patient alert to self and situation. Required re-orientation to location. O2 sat >92% on 2L via nasal cannula. IV fluids infusing per orders. Patient has sling to right arm that she came to hospital with. Patient refusing new purewick placement at this time, stating it hurts. Spoke with [facility] [employer] about patient's dentures and fentanyl patch placement. Someone will drop dentures off when able to. Per [facility] [employer] [facility] a fentanyl patch was placed on left upper extremitiy. No fentanyl patch visible on left extremities, [employer] Dorota stated she could not find one as well. Patient in bed with call light in reach, seizure precautions and fall precautions in place.
--- NOTE | 2023-12-11 15:41 | NUR ---
Surgical Services Assistant was contacted by Pete at [facility] requesting updates. SW provided via secure email.
[2023-12-11 16:23] LABS: C-REACTIVE PROTEIN 1.84 mg/dL (0.00-0.50)
--- NOTE | 2023-12-11 18:35 | NUR ---
Patient remains stable on 2L O2 via nasal cannula. Patient agreed to purewick, purewick in place and draining clear/pale yellow urine. BM noted to be streaking when patient is wiped. Requires 2-3 people for rolls in bed. Linens changed twice this shift prior to purewick and once when tubing became kinked. Complains of pain to right arm, PRN Tylenol administered. LR running at 125ml/hr per orders through left wrist. [facility] brought patient's dentures, but no adhesive. Patient's sister plans to drop off some adhesive. Number for sister in chart. Patient in bed with seizure and fall precautions in place. All needs met at this time.
[2023-12-11] MEDS ORDERED: Warfarin 5 MG TAB PO SCH (21:00)
[2023-12-11] MEDS ORDERED: Atorvastatin 40 MG TAB PO SCH (21:00)
[2023-12-11] MEDS ORDERED: Mirtazapine 15 MG TAB PO SCH (21:00)
[2023-12-12] VITALS (13 sets, daily range): BP systolic 100–121; BP diastolic 59–77; PULSE 52–84; TEMP 98.1–99.5
[2023-12-12 09:07] LABS: INR 2.2 (0.8-3.0); PROTHROMBIN TIME 23.5 SECONDS (9.7-12.8)
--- NOTE | 2023-12-12 09:44 | NUR ---
SW met with patient for intake, patient confirmed that she resides currently at [facility] and her NOK and DPOA is sister Gretchen Albarran [phone]. DPOA is on file with hospital. Pt shared that her PCP is Jaylan and pharmarcy of choice is [facility]. Patient shared that she does utilize wheelchair for her mobility. Patient is excepted to discharge back to [facility] pending any further medical recommendations.
--- NOTE | 2023-12-12 11:06 | NUR ---
Patient alert to self, situation, and location. Complains of general pain, assisted in repositioning for comfort. Generalized edema noted with +1 pitting to lower extremities. Patient unable to fully move extremities, but has minimal mobility to right hand. Assisted with breakfast. Patient refused miralax due to having bowel movement last night. O2 stable on 2L via nasal cannula. Purewick intact and draining yellow/clear urine. Heels floated with protector pillows, pillow placed under knees. HOB elevated. LR running at 125ml/hr through left wrist IV. Call light within reach, but staff frequently checking on patient due to mobility issues. All needs met at this time.
[2023-12-12] MEDS ORDERED: Morphine 4 MG/ML VIAL IV ONE (12:15)
[2023-12-12] MEDS ORDERED: Morphine 4 MG/ML VIAL IV PRN (12:15)
--- NOTE | 2023-12-12 13:48 | NUR ---
Patient's face grew increasingly red and flushed. Temperature 99.1. Blankets removed, one sheet in place over patient. PRN Tylenol administered. Patient complains of increased pain to legs and right arm. PRN Morphine administered per orders. Putty like stool noted, bed linens changed and new purewick placed. Urine is dark yellow and clear. Patient has dentures in place and is tolerating food well, ate 40% of lunch and is drinking ensure. Call light within reach, all needs met at this time. Frequent checks being done by staff.
[2023-12-12] MEDS ORDERED: Doxycycline Hyclate 100 MG in NS 150 ML IV SCH (14:00)
[2023-12-12] MEDS ORDERED: cefTRIAXone 1 G in Water For Injection,Sterile 10 ML IV SCH (14:00)
--- NOTE | 2023-12-12 16:00 | NUR ---
Patient's temperature decreased to 98.8 after Tylenol. Patient had another bowel movement, large/putty like. Linens and purewick changed again. Patient's IV tubing got tangled in her fingers and when patient turned to her side the IV catheter came out. New 22g IV placed to right hand, x2 attempts. Rocephin and Doxycycline adminstered per orders. Patient repositioned. All needs met at this time.
[2023-12-12] MEDS ORDERED: BRIMONIDINE TOP SCH (22:00)
[2023-12-13] VITALS (13 sets, daily range): BP systolic 99–129; BP diastolic 61–82; PULSE 48–96; TEMP 97.3–99.4
--- NOTE | 2023-12-13 08:45 | NUR ---
Patient awake, alert and oriented x3, forgetful, repetitive at times. C/O shoulder pain with movement. Shortness of breath with exertion, denies nausea, fair appetite. Needs full assistance with eating. Swallows well, no pocketing or signs of aspiration. Repositioned in bed. Denies further needs at this time. Bed in lowest position, bed alarm on with call light within reach.
[2023-12-13] MEDS ORDERED: dexAMETHasone 4 MG TAB PO SCH (09:00)
[2023-12-13] MEDS ORDERED: [UNRECOGNIZED DRUG - OTHER] OP SCH (09:00)
[2023-12-13 11:04] LABS: GRAN % 77.5 % (42.2-75.2); HEMATOCRIT 38.8 % (37.0-47.0); HEMOGLOBIN 11.8 g/dl (12.5-16.0); LYMPH # 0.8 K/mm3 (1.2-3.4); LYMPH % 15.7 % (20.0-51.0); MEAN CELL VOLUME 88 fl (80.0-100.0); MEAN CORPUSCULAR HEMOGLOBIN 27 pg (27-31); MEAN CORPUSCULAR HGB CONC 30 g/dl (33.0-37.0); MEAN PLATELET VOLUME 9.3 fl (7.4-10.4); MONO # 0.3 K/mm3 (0.1-0.6); MONO % 6.4 % (1.7-9.3); PLATELET COUNT 146 K/mm3 (130-400); RED BLOOD COUNT 4.39 M/mm3 (4.10-5.30); REDCELL DISTRIBUTION WIDTH-CV 14.6 % (11.5-14.5)
[2023-12-13 11:25] LABS: CALCIUM 8.8 mg/dL (8.4-10.2); CREATININE, serum 0.57 mg/dL (0.57-1.11); POTASSIUM 3.7 mmol/L (3.5-4.5)
[2023-12-13 11:33] LABS: INR 2.3 (0.8-3.0); PROTHROMBIN TIME 24.8 SECONDS (9.7-12.8)
--- NOTE | 2023-12-13 12:09 | NUR ---
Dr. Glover notified of patient's status change - face and neck becoming bright red and hot to the touch. MD states she will come to the bedside.
[2023-12-13] MEDS ORDERED: VITAMIN D 50,1.25 MG PO (14:13)
[2023-12-13] MEDS ORDERED: REMERON45 MG PO (14:17)
[2023-12-13] MEDS ORDERED: ASPIRIN E.C. 8181 MG PO (14:20)
[2023-12-13] MEDS ORDERED: AJOVY225 MG/1.5 SQ (14:25)
[2023-12-13] MEDS ORDERED: ROXICODONE 55 MG/TAB PO (14:26)
--- NOTE | 2023-12-13 14:57 | NUR ---
Facial redness has increased greatly, light pink, no longer hot.
--- NOTE | 2023-12-13 15:00 | NUR ---
Patient's facial redness has improved greatly, now light pink along the chin and forehead.
--- NOTE | 2023-12-13 15:06 | NUR ---
script worker was informed pt is from [facility]. Dr. Glover had questions regarding a previous shoulder fracture from transport. ANICETO spoke with Pete at [facility] who advised this happened at their facility and it was reported. ANICETO informed Dr. Glover. ANICETO emailed clinical updates to Pete from [facility]. Discharge Plan: Back to [facility]
--- NOTE | 2023-12-13 20:00 | NUR ---
UPON SHIFT ASSESSMENT, KEVIN WAS CRYING OUT FOR HELP. STATED SHE COULDN'T USE CALL LIGHT. PRESS PAD CALL LIGHT FOR QUADRIPLEGIC GIVEN AND PATIENT ABLE TO UTILIZE. SHE IS AXO X2 AND USES REPETITIVE SPEECH. SHE DENIES SOA OR CHEST PAIN AT THIS TIME. ALL LUNG SOUNDS WERE DIMINISHED . VS WNL AND TELE IS NS. KEVIN'S SKIN IS RED AND BLOTCHY WHICH SHE CLAIMS IS HER ROSECEA. O2 SAT 95 % ON 1L NC. CALL PAD WITHIN REACH.
[2023-12-14] VITALS (12 sets, daily range): BP systolic 89–129; BP diastolic 51–61; PULSE 49–67; TEMP 97.5–97.9
--- NOTE | 2023-12-14 07:37 | NUR ---
Throughout the night, Lisa used her call light constantly. On one occassion, when answering call light and inquiring about needs, she stated, "Oh, I'm just bored." She ahd difficulty sleeping and requested melatonin which was administered. Still unable to sleep, Lisa stated she felt anxious, PRN Atarax for anxiety given. Reported nausea @ 0200 gave Zofran. Reported 8/10 Rt shoulder pain @03:00 gave prn Buckhorn. Patient currently resting. VS WNL, tele NS bradycardia. Call pad within reach.
[2023-12-14] MEDS ORDERED: dexAMETHasone 4 MG TAB PO SCH (09:00)
[2023-12-14 09:26] LABS: BASO % 0.2 % (0.0-2.0); GRAN # 3.8 K/mm3 (1.4-6.5); GRAN % 65.1 % (42.2-75.2); HEMATOCRIT 42.8 % (37.0-47.0); HEMOGLOBIN 13.2 g/dl (12.5-16.0); LYMPH # 1.6 K/mm3 (1.2-3.4); LYMPH % 28.3 % (20.0-51.0); MEAN CELL VOLUME 85 fl (80.0-100.0); MEAN CORPUSCULAR HEMOGLOBIN 26 pg (27-31); MEAN CORPUSCULAR HGB CONC 31 g/dl (33.0-37.0); MEAN PLATELET VOLUME 9.6 fl (7.4-10.4); MONO # 0.3 K/mm3 (0.1-0.6); MONO % 5.9 % (1.7-9.3); PLATELET COUNT 153 K/mm3 (130-400); RED BLOOD COUNT 5.01 M/mm3 (4.10-5.30); REDCELL DISTRIBUTION WIDTH-CV 14.6 % (11.5-14.5)
[2023-12-14 09:27] LABS: INR 2.3 (0.8-3.0); PROTHROMBIN TIME 24.4 SECONDS (9.7-12.8)
[2023-12-14 09:32] LABS: CALCIUM 8.9 mg/dL (8.4-10.2); CREATININE, serum 0.57 mg/dL (0.57-1.11); POTASSIUM 3.8 mmol/L (3.5-4.5)
--- NOTE | 2023-12-14 09:49 | NUR ---
Patient awake, alert x3. C/O right arm pain. Denies shortness of breath at rest or nausea, tolerating food well. Nasal cannula in place. Incontinent of urine and stool, kerri care provided, linen change complete. Patient repositioned in bed, bed in lowest position with call light within reach. Face currently pink but not bright red, no lines of demarcation.
[2023-12-14] MEDS ORDERED: DULoxetine 60 MG CAP PO SCH (14:22)
[2023-12-14] MEDS ORDERED: Baclofen 10 MG TAB PO PRN (14:30)
--- NOTE | 2023-12-14 15:53 | NUR ---
acid conditioning worker emailed clinical updates to [facility]. SW was informed by Dr. Qureshi that pt could potentially discharge tomorrow. Discharge Plan: [facility]
--- NOTE | 2023-12-14 18:59 | NUR ---
Patient incontinent several times throughout the day, linen change and kerri care provided. Stool with more bulk, no longer runny. Repositioned q2. Bed in lowest position with call light within reach.
--- NOTE | 2023-12-14 20:00 | NUR ---
UPON SHIFT ASSESSMENT, KEVIN WAS AWAKE IN BED AND AXO X2- BASELINE. HER SKIN EXHIBITED FLUSHED AREAS SHE CLAIMS IS FROM ROSECEA. LUNG SOUNDS ARE CLEAR BUT DIMINSHED. SHE IS ON .5 L OF O2 NASAL CANULA FOR COMFORT ONLY. IN HER LT FX'D ARM, DISTAL PULSES ARE GOOD AND COLOR IS WNL. SHE IS DRAINING CLEAR PALE URINE FROM PUREWICK WHICH WAS RECENTLY CHANGED WITH PERINEAL CARE PROVIDED BY sales counselor. SHE DENIES CHEST PAIN AND SOA CURRENTLY AND VS ARE WNL. SHE STATES SHE WOULD LIKE A SNACK AND CHAPSTICK APPLIES-THESE PROVIDED. SKIN HAS BALNCHABLE REDNESS ON SACRUM AND FEET ARE WITHIN HEEL PROTECTORS. CALL PAD WITHIN REACH.
[2023-12-14] MEDS ORDERED: Mirtazapine 15 MG TAB PO SCH (21:00)
[2023-12-15] VITALS (8 sets, daily range): BP systolic 87–115; BP diastolic 56–70; PULSE 50–75; TEMP 97.5–97.7
--- NOTE | 2023-12-15 01:33 | NUR ---
SHEMARD BP 100/68-WNL
[2023-12-15 07:28] LABS: BASO % 0.2 % (0.0-2.0); GRAN # 2.7 K/mm3 (1.4-6.5); GRAN % 57.1 % (42.2-75.2); HEMATOCRIT 40.4 % (37.0-47.0); HEMOGLOBIN 12.5 g/dl (12.5-16.0); LYMPH # 1.6 K/mm3 (1.2-3.4); LYMPH % 33.5 % (20.0-51.0); MEAN CELL VOLUME 87 fl (80.0-100.0); MEAN CORPUSCULAR HEMOGLOBIN 27 pg (27-31); MEAN CORPUSCULAR HGB CONC 31 g/dl (33.0-37.0); MEAN PLATELET VOLUME 9.5 fl (7.4-10.4); MONO # 0.4 K/mm3 (0.1-0.6); MONO % 8.6 % (1.7-9.3); PLATELET COUNT 148 K/mm3 (130-400); RED BLOOD COUNT 4.67 M/mm3 (4.10-5.30); REDCELL DISTRIBUTION WIDTH-CV 14.6 % (11.5-14.5)
--- NOTE | 2023-12-15 07:30 | NUR ---
CALL PLACED TO [facility]. MICROBIOLOGY RESULTS- BLOOD CULTURE POSITIVE FOR [facility]. NO ORDERS AT THIS TIME.
[2023-12-15 07:37] LABS: CALCIUM 8.4 mg/dL (8.4-10.2); CREATININE, serum 0.51 mg/dL (0.57-1.11)
--- NOTE | 2023-12-15 08:24 | NUR ---
Patient awake, alert and oriented, forgetful. On room air, denies shortness of breath, pain, or nausea. Repositioned. Purewick in place, incontinent care provided as needed. Bed in lowest position with call light within reach.
[2023-12-15] MEDS ORDERED: ARIPiprazole 5 MG TAB PO SCH (09:00)
[2023-12-15] MEDS ORDERED: Mirtazapine 15 MG TAB PO SCH (09:00)
[2023-12-15] MEDS ORDERED: DECADRON6 MG PO (12:11)
--- NOTE | 2023-12-15 14:43 | NUR ---
beam worker was informed by Dr. Qureshi that pt can discharge today to [facility]. ANICETO sent discharge orders and confirmed a time for transport between 2:30-3:00pm. ANICETO spoke with DPOA-HC/sister, Gretchen and completed IM from medicare. She provided verbal consent and a copy was placed in the discharge packet. Original in chart. Gretchen passed on her concerns regarding being able to speak with a nurse reagrding her sister's care since she cannot answer a phone. ANICETO provided she saw pt had a camera monitor to observe pt's needs. Gretchen was thankful for this information. Pete at [facility] requested skilled orders on pt and ANICETO spoke with Dr. Qureshi to add this to the discharge orders. Discharge Plan: [facility]
--- NOTE | 2023-12-15 15:40 | NUR ---
Report called to Karan at [facility], callback number given for any questions. Patient transferred to wheelchair via [facility] lift, transported by [facility] staff.
[2023-12-15] MEDS ORDERED: Warfarin 5 MG TAB PO SCH (21:00)
[2023-12-16] MEDS ORDERED: Mirtazapine 15 MG TAB PO SCH (21:00)
[2023-12-18] MEDS ORDERED: Warfarin 4 MG TAB PO SCH (21:00)
== END 2023-12-15 15:54 | DRG 177 ==
LOC: COL.ER → ICU 01:51 → MEDICAL 14:01
PROVIDERS: Emergency Medicine; Internal Medicine; Physician Assistant; ADMIT Hospitalist
DX: U07.1 COVID-19 (principal); J96.01 Acute respiratory failure with hypoxia; J96.22 Acute and chronic respiratory failure with hypercapnia; R53.2 Functional quadriplegia; D68.61 Antiphospholipid syndrome; E66.2 Morbid (severe) obesity with alveolar hypoventilation; M84.421A Pathological fracture, right humerus, initial encounter for fracture; I73.9 Peripheral vascular disease, unspecified; K21.9 Gastro-esophageal reflux disease without esophagitis; G40.909 Epilepsy, unspecified, not intractable, without status epilepticus; F32.A Depression, unspecified; M79.7 Fibromyalgia; G43.909 Migraine, unspecified, not intractable, without status migrainosus; I44.0 Atrioventricular block, first degree; M25.511 Pain in right shoulder; F41.9 Anxiety disorder, unspecified; G89.29 Other chronic pain; E78.5 Hyperlipidemia, unspecified; L53.8 Other specified erythematous conditions; I77.6 Arteritis, unspecified; G62.9 Polyneuropathy, unspecified; E88.09 Other disorders of plasma-protein metabolism, not elsewhere classified; I10 Essential (primary) hypertension; I95.9 Hypotension, unspecified; Z79.01 Long term (current) use of anticoagulants; Z90.89 Acquired absence of other organs; Z90.710 Acquired absence of both cervix and uterus; Z98.51 Tubal ligation status; Z79.82 Long term (current) use of aspirin; Z79.899 Other long term (current) drug therapy; Z87.891 Personal history of nicotine dependence; Z88.1 Allergy status to other antibiotic agents; Z88.8 Allergy status to other drugs, medicaments and biological substances; Z91.048 Other nonmedicinal substance allergy status; Z86.73 Personal history of transient ischemic attack (TIA), and cerebral infarction without residual deficits; Z23 Encounter for immunization; Z68.31 Body mass index [BMI] 31.0-31.9, adult
CPT/HCPCS: J0696; J2270; J2405; J7030; J7120; J8540; P9047

== ENCOUNTER 2024-07-18 07:11 | Emergency (ER) | payer MEDICARE, MEDICAID ==
[~2024-07-18] VITALS: Ht 172.7 cm; Wt 100.0 kg
[~2024-07-18 07:11] MED LIST changes: +AJOVY225 MG/1.5 SQ; +ASPIRIN E.C. 8181 MG PO; +ATARAX 25MG25 MG/TAB PO; +ATHLETE'S FOOT1% TP; +BELSOMRA10 MG PO; +CYMBALTA 60MG60 MG PO; +D3-5050000 IU PO; +DECADRON6 MG PO; +FENTANYL 12MCG TD; +FENTANYL 25 MCG TD; +FERRO-TIME325 MG PO; +FOSAMAX 70MG TA70 MG PO; +LIDODERM 5% PATC1 EA TP; +LIORESAL20 MG PO; +MIRVASO30 GM TP; +NARCAN .4MG0.4 MG/ML IM; +NATURAL MAGNES200 MG PO; +PAXLOVID CO-PA1 EACH PO; +PROTONIX 40MG T40 MG PO; +REMERON 15M15 MG/TA1 PO; +REMERON45 MG PO; +SUPPORT 240 ML240 ML; +TUMS500 MG PO; +VOLTAREN GEL 1%1 TU TP; +[UNRECOGNIZED DRUG - OTHER] PO
[2024-07-18 07:21] VITALS: TEMP 98.6
[2024-07-18 08:18] LABS: BASO % 0.4 % (0.0-2.0); EOS % 0.6 % (0.0-4.0); GRAN % 70.4 % (42.2-75.2); HEMATOCRIT 46.5 % (37.0-47.0); HEMOGLOBIN 14.6 g/dl (12.5-16.0); LYMPH # 1.5 K/mm3 (1.2-3.4); LYMPH % 20.9 % (20.0-51.0); MEAN CELL VOLUME 89 fl (80.0-100.0); MEAN CORPUSCULAR HEMOGLOBIN 28 pg (27-31); MEAN CORPUSCULAR HGB CONC 31 g/dl (33.0-37.0); MEAN PLATELET VOLUME 9.8 fl (7.4-10.4); MONO # 0.5 K/mm3 (0.1-0.6); MONO % 7.4 % (1.7-9.3); PLATELET COUNT 123 K/mm3 (130-400); RED BLOOD COUNT 5.24 M/mm3 (4.10-5.30); REDCELL DISTRIBUTION WIDTH-CV 13.2 % (11.5-14.5)
[2024-07-18 08:32] LABS: INR 2.7 (0.8-3.0); PROTHROMBIN TIME 28.1 SECONDS (9.7-12.8)
[2024-07-18 08:35] LABS: PARTIAL THROMBOPLASTIN TIME 52.4 SECONDS (26.0-37.0)
[2024-07-18 08:56] LABS: ALANINE AMINOTRANSFERASE 14 U/L (0-55); ALBUMIN 3.2 g/dL (3.5-5.0); ALKALINE PHOSPHATASE 89 U/L (40-150); ANION GAP 9 mmol/L (7-16); AST,SGOT 12 U/L (5-34); BILIRUBIN,TOTAL 0.3 mg/dL (0.2-1.2); BLOOD UREA NITROGEN 9 mg/dL (7-19); CHLORIDE 106 mEq/L (98-107); GLUCOSE 86 mg/dL (70-99); MAGNESIUM 1.9 mg/dL (1.6-2.6); POTASSIUM 4.2 mEq/L (3.5-4.5); SODIUM 141 mEq/L (136-145); TOTAL PROTEIN 6.5 g/dl (6.2-8.1)
[2024-07-18 09:15] LABS: TROPONIN-I < 0.010 ng/mL (0.00-0.033)
[2024-07-18] MEDS ORDERED: Ondansetron 4 MG/2 ML VIAL IV ONE (11:00)
[2024-07-18 14:00] VITALS: BP 91/73; PULSE 78
== END 2024-07-18 14:00 ==
LOC: COL.ER 07:11
PROVIDERS: Family Medicine
DX: R07.9 Chest pain, unspecified (principal); Z91.040 Latex allergy status
CPT/HCPCS: J2405

== ENCOUNTER → 2024-09-08 | Outpatient (CLI) | payer MEDICARE, MEDICAID | LOC: COL.RAD 14:11 | DX: R91.8 Other nonspecific abnormal finding of lung field (principal) ==